=== PATIENT | female | born 1990 | race Two or more races ===

== ENCOUNTER 2017-02-24 17:28 | Emergency (ER) | payer MEDICAID ==
[~2017-02-24] VITALS: Ht 177.8 cm; Wt 102.0 kg
[2017-02-24 17:34] VITALS: BP 142/100
== END 2017-02-25 00:16 | disposition left against medical advice (07) ==
LOC: ER 17:28
DX: Z53.21 Procedure and treatment not carried out due to patient leaving prior to being seen by health care provider (principal)

== ENCOUNTER 2020-06-18 15:16 | Emergency (ER) | payer MEDICAID, OTHER ==
[~2020-06-18] VITALS: Ht 177.8 cm; Wt 104.0 kg
[2020-06-18] MEDS ORDERED: PIPERACILLIN/TAZ 3.375G PREMIX 50 ML IV ONE (16:30)
[2020-06-18] MEDS ORDERED: VANCOMYCIN 1 G PREMIX 200 ML IV ONE (16:30)
[2020-06-18] MEDS ORDERED: LIDOCAINE HCL/PF 1% 10 MG/ML 5ML VIAL IJ NR (17:30)
[2020-06-18 18:01] LABS: BASOPHILS % 0.9 % (0.0-2.0); EOSINOPHILS % 2.2 % (0.0-5.0); HEMATOCRIT. 37.2 % (36.0-48.0); HEMOGLOBIN. 12.4 g/dL (12.0-16.0); LYMPHOCYTES % 24.3 % (20.0-50.0); MEAN CORPUSCULAR HEMOGLOBIN 25.2 pg (28.0-32.0); MEAN CORPUSCULAR VOLUME 75.5 fL (81.0-99.0); MONOCYTES % 6.3 % (2.0-8.0); NEUTROPHILS % 66.3 % (40.0-76.0); PLATELET 400 x1000/uL (130-400); RED BLOOD CELL COUNT 4.92 mill/uL (4.2-5.4); RED CELL DISTRIBUTION WIDTH 13.7 % (11.6-14.6)
[2020-06-18 18:10] LABS: PROTHROMBIN TIME 10.3 sec (9.6-11.0)
[2020-06-18 18:13] LABS: CHLORIDE 101 mEq/L (98-107)
[2020-06-18] MEDS ORDERED: HYDROCODONE/ACETAMINOPHEN 5/325MG TABLET PO ONE (19:45)
[2020-06-18 20:07] VITALS: BP 153/100
== END 2020-06-18 20:18 | disposition short-term general hospital (02) ==
LOC: ER 15:16 → CANBEDREQ 20:42
DX: L97.518 Non-pressure chronic ulcer of other part of right foot with other specified severity (principal); E11.65 Type 2 diabetes mellitus with hyperglycemia
CPT/HCPCS: 36415; 73630; 80053; 81025; 85025; 85610; 87040; 87070; 87205; 93005; 96365; 96368; 99285; J2543; J3370; J3490

== ENCOUNTER 2021-07-19 12:05 | Emergency (ER) | payer OTHER ==
[~2021-07-19] VITALS: Ht 177.8 cm; Wt 87.0 kg
[2021-07-19] MEDS ORDERED: ONDANSETRON HCL 4MG/2ML INJ IV STA (12:31)
[2021-07-19] MEDS ORDERED: SODIUM CHLORIDE 0.9% 1,000 ML IV ONE (12:45)
[2021-07-19 13:22] LABS: BASOPHILS % 0.8 % (0.0-2.0); EOSINOPHILS % 0.3 % (0.0-5.0); HEMOGLOBIN. 13.7 g/dL (12.0-16.0); LYMPHOCYTES % 21.7 % (20.0-50.0); MEAN CORPUSCULAR HEMOGLOBIN 25.2 pg (28.0-32.0); MEAN CORPUSCULAR VOLUME 77.5 fL (81.0-99.0); MEAN PLATELET VOLUME 7.3 fl (7.4-10.4); MONOCYTES % 4.4 % (2.0-8.0); NEUTROPHILS % 72.8 % (40.0-76.0); PLATELET 459 x1000/uL (130-400); RED BLOOD CELL COUNT 5.42 mill/uL (4.2-5.4); RED CELL DISTRIBUTION WIDTH 13.7 % (11.6-14.6)
[2021-07-19 13:28] LABS: CHLORIDE 97 mEq/L (98-107)
[2021-07-19 13:33] LABS: HCG SCREEN NEGATIVE
[2021-07-19 13:54] LABS: CLARITY URINE CLEAR (CLEAR); COLOR URINE YELLOW (YELLOW); KETONES URINE NEGATIVE (NEGATIVE); LEUKOCYTE ESTERASE URINE NEGATIVE (NEGATIVE); NITRITE URINE NEGATIVE (NEGATIVE); OCCULT BLOOD URINE 1+ (NEGATIVE); PH URINE 7.5 (4.5-8.0); PROTEIN URINE 4+ (NEGATIVE); SPECIFIC GRAVITY URINE 1.016 (1.005-1.030); UROBILINOGEN URINE 0.2 E.U./dL (0.2-1.0)
[2021-07-19] MEDS ORDERED: MAGNESIUM/ALUMINUM HYDROXIDE/SIMETHICONE 30ML UDC PO NR (14:00)
[2021-07-19] MEDS ORDERED: VISCOUS LIDOCAINE 2% 15 ML UDC PO NR (14:00)
[2021-07-19] MEDS ORDERED: FAMOTIDINE 20MG/2ML VIAL IV ONE (14:00)
[2021-07-19] MEDS ORDERED: PROCHLORPERAZINE 10MG/2ML VIAL IM ONE (17:30)
[2021-07-19] MEDS ORDERED: MORPHINE SULFATE 4 MG/ML CPJ (NOT FOR IM USE) IV ONE (18:00)
[2021-07-19 18:15] VITALS: BP 126/85
== END 2021-07-19 21:31 | disposition left against medical advice (07) ==
LOC: ER 12:05
DX: R10.13 Epigastric pain (principal); N28.89 Other specified disorders of kidney and ureter; E11.9 Type 2 diabetes mellitus without complications; Z98.890 Other specified postprocedural states
CPT/HCPCS: 36415; 74176; 76705; 80053; 81003; 83690; 84703; 85025; 96361; 96372; 96374; 96375; 99285; J0780; J2270; J2405; J3490; J7030

== ENCOUNTER 2021-09-16 20:26 | Emergency (ER) | payer OTHER ==
[~2021-09-16] VITALS: Ht 172.7 cm; Wt 90.0 kg
[2021-09-16 20:28] VITALS: BP 141/106
[2021-09-16] MEDS ORDERED: METOCLOPRAMIDE HCL 10MG/2ML VIAL IV ONE (21:00)
[2021-09-16] MEDS ORDERED: SODIUM CHLORIDE 0.9% 1,000 ML IV ONE (21:00)
[2021-09-16 21:07] LABS: BASOPHILS % 0.6 % (0.0-2.0); EOSINOPHILS % 0.3 % (0.0-5.0); HEMATOCRIT. 38.6 % (36.0-48.0); HEMOGLOBIN. 12.6 g/dL (12.0-16.0); LYMPHOCYTES % 27.4 % (20.0-50.0); MEAN CORPUSCULAR HEMOGLOBIN 25.2 pg (28.0-32.0); MEAN CORPUSCULAR VOLUME 77.2 fL (81.0-99.0); MEAN PLATELET VOLUME 7.4 fl (7.4-10.4); MONOCYTES % 5.6 % (2.0-8.0); NEUTROPHILS % 66.1 % (40.0-76.0); PLATELET 425 x1000/uL (130-400); RED CELL DISTRIBUTION WIDTH 14.5 % (11.6-14.6)
[2021-09-16 21:13] LABS: CHLORIDE 102 mEq/L (98-107)
[2021-09-16 22:47] LABS: CLARITY URINE CLEAR (CLEAR); COLOR URINE YELLOW (YELLOW); KETONES URINE TRACE (NEGATIVE); LEUKOCYTE ESTERASE URINE NEGATIVE (NEGATIVE); NITRITE URINE NEGATIVE (NEGATIVE); OCCULT BLOOD URINE 1+ (NEGATIVE); PROTEIN URINE 4+ (NEGATIVE); UROBILINOGEN URINE 0.2 E.U./dL (0.2-1.0)
[2021-09-16] MEDS ORDERED: METO5TAB86 MT (23:04)
[2021-09-16] MEDS ORDERED: MAGNESIUM/ALUMINUM HYDROXIDE/SIMETHICONE 30ML UDC PO ONE (23:15)
== END 2021-09-16 23:49 | disposition home or self-care (01) ==
LOC: ER 20:26
DX: K29.70 Gastritis, unspecified, without bleeding (principal); R11.2 Nausea with vomiting, unspecified; E11.9 Type 2 diabetes mellitus without complications; Z98.890 Other specified postprocedural states
CPT/HCPCS: 36415; 80053; 81003; 82962; 83690; 85025; 93005; 96361; 96374; 99283; J2765; J7030

== ENCOUNTER 2021-11-28 09:38 | Emergency (ER) | payer MEDICAID, OTHER ==
[~2021-11-28] VITALS: Ht 167.6 cm; Wt 169.5 kg
[~2021-11-28 09:38] MED LIST: METO5TAB86 MT
[2021-11-28] MEDS ORDERED: glipizide (09:49)
[2021-11-28] MEDS ORDERED: METOCLOPRAMIDE HCL 10MG/2ML VIAL IV STA (10:46)
[2021-11-28 10:55] LABS: BASOPHILS % 0.6 % (0.0-2.0); EOSINOPHILS % 0.2 % (0.0-5.0); HEMATOCRIT. 41.7 % (36.0-48.0); HEMOGLOBIN. 13.9 g/dL (12.0-16.0); LYMPHOCYTES % 21.1 % (20.0-50.0); MEAN CORPUSCULAR HEMOGLOBIN 25.6 pg (28.0-32.0); MEAN CORPUSCULAR VOLUME 76.7 fL (81.0-99.0); MEAN PLATELET VOLUME 7.7 fl (7.4-10.4); MONOCYTES % 5.3 % (2.0-8.0); NEUTROPHILS % 72.8 % (40.0-76.0); PLATELET 314 x1000/uL (130-400); RED BLOOD CELL COUNT 5.44 mill/uL (4.2-5.4); RED CELL DISTRIBUTION WIDTH 13.2 % (11.6-14.6)
[2021-11-28] MEDS ORDERED: SODIUM CHLORIDE 0.9% 1,000 ML IV ONE (11:00)
[2021-11-28] MEDS ORDERED: MORPHINE SULFATE 4 MG/ML CPJ (NOT FOR IM USE) IV ONE (11:00)
[2021-11-28 11:01] LABS: CHLORIDE 99 mEq/L (98-107)
[2021-11-28 13:41] LABS: CLARITY URINE CLEAR (CLEAR); COLOR URINE YELLOW (YELLOW); KETONES URINE NEGATIVE (NEGATIVE); LEUKOCYTE ESTERASE URINE NEGATIVE (NEGATIVE); NITRITE URINE NEGATIVE (NEGATIVE); OCCULT BLOOD URINE 1+ (NEGATIVE); PH URINE 7.5 (4.5-8.0); PROTEIN URINE 4+ (NEGATIVE); SPECIFIC GRAVITY URINE 1.016 (1.005-1.030)
[2021-11-28] MEDS ORDERED: CEFTRIAXONE 1 G PREMIX 50 ML IV ONE (14:45)
[2021-11-28] MEDS ORDERED: METO-293 MT (15:28)
[2021-11-28] MEDS ORDERED: CEPH500C2 MT (15:37)
[2021-11-28 17:24] VITALS: BP 147/89
== END 2021-11-28 17:50 | disposition home or self-care (01) ==
LOC: ER 09:38
DX: R10.84 Generalized abdominal pain (principal); R11.10 Vomiting, unspecified; E11.9 Type 2 diabetes mellitus without complications; Z98.890 Other specified postprocedural states
CPT/HCPCS: 36415; 80053; 81003; 83690; 85025; 96361; 96365; 96366; 96375; 99285; J0696; J2270; J2765; J7030; Z7610

== ENCOUNTER 2021-12-15 21:14 | Emergency (ER) | payer MEDICAID ==
[~2021-12-15] VITALS: Ht 177.8 cm; Wt 91.0 kg
[~2021-12-15 21:14] MED LIST changes: +CEPH500C2 MT; +METO-293 MT; +glipizide
[2021-12-15] MEDS ORDERED: PANTOPRAZOLE SODIUM 40 MG/VIAL IV STA (21:59)
[2021-12-15] MEDS ORDERED: MORPHINE SULFATE 4 MG/ML CPJ (NOT FOR IM USE) IV STA (21:59)
[2021-12-15] MEDS ORDERED: METOCLOPRAMIDE HCL 10MG/2ML VIAL IV STA (21:59)
[2021-12-15] MEDS ORDERED: SODIUM CHLORIDE 0.9% 1,000 ML IV ONE (22:00)
[2021-12-15 22:47] LABS: BASOPHILS % 0.6 % (0.0-2.0); EOSINOPHILS % 0.1 % (0.0-5.0); HEMATOCRIT. 39.5 % (36.0-48.0); HEMOGLOBIN. 13.2 g/dL (12.0-16.0); LYMPHOCYTES % 17.2 % (20.0-50.0); MEAN CORPUSCULAR HEMOGLOBIN 25.8 pg (28.0-32.0); MEAN CORPUSCULAR VOLUME 77.4 fL (81.0-99.0); MEAN PLATELET VOLUME 8.1 fl (7.4-10.4); MONOCYTES % 3.8 % (2.0-8.0); NEUTROPHILS % 78.3 % (40.0-76.0); PLATELET 400 x1000/uL (130-400); RED CELL DISTRIBUTION WIDTH 13.3 % (11.6-14.6)
[2021-12-15 22:52] LABS: CHLORIDE 102 mEq/L (98-107)
[2021-12-15 22:56] LABS: ETHANOL BLOOD < 10 mg/dL
[2021-12-15 23:00] LABS: HCG SCREEN NEGATIVE
[2021-12-15 23:01] LABS: BETA HYDROXYBUTYRATE 0.6 mMol/L (0.0-0.3)
[2021-12-16] MEDS ORDERED: MORPHINE SULFATE 4 MG/ML CPJ (NOT FOR IM USE) IV ONE (01:30)
[2021-12-16 08:24] VITALS: BP 133/93
== END 2021-12-16 08:37 | disposition short-term general hospital (02) ==
LOC: ER 21:14 → CANBEDREQ 12-16 08:33 → ER 12-16 08:37
DX: R10.9 Unspecified abdominal pain (principal); E11.9 Type 2 diabetes mellitus without complications; Z20.822 Contact with and (suspected) exposure to COVID-19; Z98.890 Other specified postprocedural states
CPT/HCPCS: 36415; 74176; 80053; 80320; 82010; 83690; 84703; 85025; 87426; 93005; 96361; 96374; 96375; 96376; 99285; C9113; J2270; J2765; J7030; Z7610; G0480

== ENCOUNTER 2022-01-09 11:26 | Emergency (ER) | payer MEDICAID, OTHER ==
[~2022-01-09] VITALS: Ht 175.3 cm; Wt 90.0 kg
[2022-01-09 11:32] VITALS: BP 139/100
[2022-01-09] MEDS ORDERED: ONDANSETRON HCL 4MG/2ML INJ IV STA ×2 (12:35→17:09)
[2022-01-09] MEDS ORDERED: SODIUM CHLORIDE 0.9% 1,000 ML IV ONE (12:45)
[2022-01-09] MEDS ORDERED: ONDANSETRON HCL 4MG/2ML INJ ONE (13:45)
[2022-01-09 13:58] LABS: CHLORIDE 99 mEq/L (98-107)
[2022-01-09 14:06] LABS: BASOPHILS % 0.6 % (0.0-2.0); EOSINOPHILS % 0.4 % (0.0-5.0); HEMATOCRIT. 38.3 % (36.0-48.0); HEMOGLOBIN. 12.8 g/dL (12.0-16.0); LYMPHOCYTES % 29.8 % (20.0-50.0); MEAN CORPUSCULAR HEMOGLOBIN 25.9 pg (28.0-32.0); MEAN CORPUSCULAR VOLUME 77.7 fL (81.0-99.0); MEAN PLATELET VOLUME 7.4 fl (7.4-10.4); MONOCYTES % 6.3 % (2.0-8.0); NEUTROPHILS % 62.9 % (40.0-76.0); PLATELET 383 x1000/uL (130-400); RED BLOOD CELL COUNT 4.93 mill/uL (4.2-5.4); RED CELL DISTRIBUTION WIDTH 14.1 % (11.6-14.6)
[2022-01-09] MEDS ORDERED: KETOROLAC 15MG/ML VIAL IV ONE (14:15)
[2022-01-09 15:44] LABS: CLARITY URINE CLEAR (CLEAR); COLOR URINE YELLOW (YELLOW); KETONES URINE NEGATIVE (NEGATIVE); LEUKOCYTE ESTERASE URINE NEGATIVE (NEGATIVE); NITRITE URINE NEGATIVE (NEGATIVE); OCCULT BLOOD URINE NEGATIVE (NEGATIVE); PROTEIN URINE 4+ (NEGATIVE)
[2022-01-09] MEDS ORDERED: MORPHINE SULFATE 4 MG/ML CPJ (NOT FOR IM USE) IV STA (17:09)
[2022-01-09] MEDS ORDERED: IBUP-2029 MT (18:10)
== END 2022-01-09 18:38 | disposition home or self-care (01) ==
LOC: ER 11:26
DX: R10.32 Left lower quadrant pain (principal); N28.9 Disorder of kidney and ureter, unspecified; E11.9 Type 2 diabetes mellitus without complications; Z98.890 Other specified postprocedural states; Z79.899 Other long term (current) drug therapy
CPT/HCPCS: 36415; 74176; 80053; 81003; 81025; 83690; 85025; 96374; 96375; 96376; 99284; J1885; J2270; J2405; J7030

== ENCOUNTER 2022-02-22 09:21 | Emergency (ER) | payer MEDICAID, OTHER ==
[~2022-02-22] VITALS: Ht 175.3 cm; Wt 87.0 kg
[~2022-02-22 09:21] MED LIST changes: +IBUP-2029 MT
[2022-02-22] MEDS ORDERED: ONDANSETRON HCL 4MG/2ML INJ IV STA (10:42)
[2022-02-22] MEDS ORDERED: MORPHINE SULFATE 4 MG/ML CPJ (NOT FOR IM USE) IV STA (10:42)
[2022-02-22] MEDS ORDERED: MIDAZOLAM HCL 2 MG/2 ML VIAL IV ONE (10:45)
[2022-02-22] MEDS ORDERED: SODIUM CHLORIDE 0.9% 1,000 ML IV ONE (10:45)
[2022-02-22 11:03] LABS: BASOPHILS % 0.8 % (0.0-2.0); EOSINOPHILS % 0.5 % (0.0-5.0); HEMATOCRIT. 36.6 % (36.0-48.0); HEMOGLOBIN. 11.9 g/dL (12.0-16.0); LYMPHOCYTES % 28.3 % (20.0-50.0); MEAN CORPUSCULAR HEMOGLOBIN 25.6 pg (28.0-32.0); MEAN CORPUSCULAR VOLUME 78.6 fL (81.0-99.0); MEAN PLATELET VOLUME 8.1 fl (7.4-10.4); MONOCYTES % 4.3 % (2.0-8.0); NEUTROPHILS % 66.1 % (40.0-76.0); PLATELET 586 x1000/uL (130-400); RED BLOOD CELL COUNT 4.66 mill/uL (4.2-5.4); RED CELL DISTRIBUTION WIDTH 14.5 % (11.6-14.6)
[2022-02-22 11:08] LABS: CHLORIDE 99 mEq/L (98-107)
[2022-02-22 11:12] LABS: HCG SCREEN NEGATIVE
[2022-02-22 11:15] LABS: ETHANOL BLOOD < 10 mg/dL
[2022-02-22 11:37] LABS: CLARITY URINE CLEAR (CLEAR); COLOR URINE YELLOW (YELLOW); KETONES URINE NEGATIVE (NEGATIVE); LEUKOCYTE ESTERASE URINE TRACE (NEGATIVE); NITRITE URINE NEGATIVE (NEGATIVE); OCCULT BLOOD URINE TRACE (NEGATIVE); PROTEIN URINE 4+ (NEGATIVE); SPECIFIC GRAVITY URINE 1.016 (1.005-1.030); UROBILINOGEN URINE 0.2 E.U./dL (0.2-1.0)
[2022-02-22 12:23] LABS: *AMPHETAMINES SCREEN URINE NEGATIVE (NEGATIVE); *BARBITURATES SCREEN URINE NEGATIVE (NEGATIVE); *BENZODIAZEPINES SCREEN URINE NEGATIVE (NEGATIVE); *COCAINE SCREEN URINE NEGATIVE (NEGATIVE); CANNABINOID URINE SCREEN NEGATIVE (NEGATIVE); METHADONE URINE SCREEN NEGATIVE (NEGATIVE); OPIATES URINE SCREEN NEGATIVE (NEGATIVE); PHENCYCLIDINE URINE SCREEN NEGATIVE (NEGATIVE)
[2022-02-22] MEDS ORDERED: CEFTRIAXONE 1 G PREMIX 50 ML IV ONE (13:15)
[2022-02-22] MEDS ORDERED: SODIUM CHLORIDE 0.9% 1000ML BAG (SEPSIS BOLUS) IV ONE (13:15)
[2022-02-22] MEDS: CEFTRIAXONE 1 G PREMIX 50 ML IV NR ×3 (16:34→17:29)
[2022-02-22 22:00] VITALS: BP 118/77
== END 2022-02-22 23:05 | disposition short-term general hospital (02) ==
LOC: ER 09:21 → CANBEDREQ 19:51 → ER 23:05
DX: A41.9 Sepsis, unspecified organism (principal); R65.20 Severe sepsis without septic shock; N39.0 Urinary tract infection, site not specified; E11.9 Type 2 diabetes mellitus without complications; Z20.822 Contact with and (suspected) exposure to COVID-19; Z98.890 Other specified postprocedural states
CPT/HCPCS: 36415; 80053; 80305; 80320; 81003; 82962; 83605; 83690; 84703; 85025; 87040; 87086; 87426; 93005; 96361; 96374; 96375; 99285; J0696; J2250; J2270; J2405; J7030; G0480

== ENCOUNTER 2022-02-27 09:51 | Emergency (ER) | payer OTHER ==
[~2022-02-27] VITALS: Ht 170.2 cm; Wt 98.0 kg
[2022-02-27] MEDS ORDERED: CEFTRIAXONE 1 G PREMIX 50 ML IV ONE (10:30)
[2022-02-27] MEDS ORDERED: SODIUM CHLORIDE 0.9% 1000ML BAG (SEPSIS BOLUS) IV ONE (10:30)
[2022-02-27] MEDS ORDERED: FAMOTIDINE 20MG/2ML VIAL IV ONE (11:00)
[2022-02-27] MEDS ORDERED: FENTANYL CITRATE/PF 50MCG/ML 2ML VIAL IV ONE ×2 (11:00→14:30)
[2022-02-27 11:01] LABS: BASOPHILS % 0.6 % (0.0-2.0); EOSINOPHILS % 0.2 % (0.0-5.0); HEMATOCRIT. 38.2 % (36.0-48.0); HEMOGLOBIN. 12.4 g/dL (12.0-16.0); LYMPHOCYTES % 20.3 % (20.0-50.0); MEAN CORPUSCULAR HEMOGLOBIN 25.5 pg (28.0-32.0); MEAN CORPUSCULAR VOLUME 78.3 fL (81.0-99.0); MEAN PLATELET VOLUME 7.5 fl (7.4-10.4); NEUTROPHILS % 73.9 % (40.0-76.0); PLATELET 401 x1000/uL (130-400); RED BLOOD CELL COUNT 4.88 mill/uL (4.2-5.4); RED CELL DISTRIBUTION WIDTH 14.1 % (11.6-14.6)
[2022-02-27 11:11] LABS: CHLORIDE 105 mEq/L (98-107)
[2022-02-27 11:19] LABS: CLARITY URINE CLEAR (CLEAR); COLOR URINE YELLOW (YELLOW); KETONES URINE TRACE (NEGATIVE); LEUKOCYTE ESTERASE URINE NEGATIVE (NEGATIVE); NITRITE URINE NEGATIVE (NEGATIVE); OCCULT BLOOD URINE 1+ (NEGATIVE); PROTEIN URINE 4+ (NEGATIVE); SPECIFIC GRAVITY URINE 1.021 (1.005-1.030); UROBILINOGEN URINE 0.2 E.U./dL (0.2-1.0)
[2022-02-27 11:19] LABS: HCG SCREEN NEGATIVE
[2022-02-27] MEDS ORDERED: ONDANSETRON HCL 4MG/2ML INJ IV ONE (14:30)
[2022-02-27] MEDS ORDERED: IOHEXOL-350 100 ML BOTTLE ONE (16:48)
[2022-02-27] MEDS ORDERED: ACETAMINOPHEN 325MG TABLET PO ONE (17:45)
[2022-02-27 17:56] VITALS: BP 131/92
== END 2022-02-27 18:14 | disposition short-term general hospital (02) ==
LOC: ER 10:05 → CANBEDREQ 19:24
DX: R10.13 Epigastric pain (principal); N39.0 Urinary tract infection, site not specified; R65.10 Systemic inflammatory response syndrome (SIRS) of non-infectious origin without acute organ dysfunction; E11.65 Type 2 diabetes mellitus with hyperglycemia; K21.9 Gastro-esophageal reflux disease without esophagitis; Z98.890 Other specified postprocedural states; Z20.822 Contact with and (suspected) exposure to COVID-19
CPT/HCPCS: 36415; 70450; 70496; 70498; 80053; 81003; 81025; 82962; 83605; 83690; 84145; 84703; 85025; 87040; 87086; 87426; 93005; 96365; 96366; 96375; 96376; 99285; C9803; J0696; J2405; J3010; J7030; Q9967; J3490

== ENCOUNTER 2022-09-18 12:37 | Emergency (ER) | payer OTHER ==
[~2022-09-18] VITALS: Ht 175.3 cm; Wt 86.0 kg
[~2022-09-18 12:37] MED LIST changes: +BISA10SU62 RC; +LIP40 MT
[2022-09-18] MEDS ORDERED: ONDANSETRON HCL 4MG/2ML INJ IV STA (16:09)
[2022-09-18] MEDS ORDERED: MORPHINE SULFATE 4 MG/ML CPJ (NOT FOR IM USE) IV STA (16:09)
[2022-09-18] MEDS ORDERED: SODIUM CHLORIDE 0.9% 1,000 ML IV ONE (16:15)
[2022-09-18] MEDS ORDERED: PREDNISONE 20MG TABLET PO ONE (16:30)
[2022-09-18] MEDS ORDERED: ACYCLOVIR 400 MG TABLET PO ONE (16:45)
[2022-09-18 16:54] LABS: CLARITY URINE CLOUDY (CLEAR); COLOR URINE YELLOW (YELLOW); KETONES URINE NEGATIVE (NEGATIVE); LEUKOCYTE ESTERASE URINE 1+ (NEGATIVE); NITRITE URINE NEGATIVE (NEGATIVE); OCCULT BLOOD URINE 1+ (NEGATIVE); PROTEIN URINE 4+ (NEGATIVE); SPECIFIC GRAVITY URINE 1.012 (1.005-1.030); UROBILINOGEN URINE 0.2 E.U./dL (0.2-1.0)
[2022-09-18 17:08] LABS: BASOPHILS % 1.1 % (0.0-2.0); EOSINOPHILS % 0.5 % (0.0-5.0); HEMATOCRIT. 39.8 % (36.0-48.0); HEMOGLOBIN. 12.8 g/dL (12.0-16.0); LYMPHOCYTES % 24.8 % (20.0-50.0); MEAN CORPUSCULAR HEMOGLOBIN 25.6 pg (28.0-32.0); MEAN CORPUSCULAR VOLUME 79.7 fL (81.0-99.0); MEAN PLATELET VOLUME 7.8 fl (7.4-10.4); MONOCYTES % 5.3 % (2.0-8.0); NEUTROPHILS % 68.3 % (40.0-76.0); PLATELET 445 x1000/uL (130-400); RED BLOOD CELL COUNT 4.99 mill/uL (4.2-5.4); RED CELL DISTRIBUTION WIDTH 14.6 % (11.6-14.6)
[2022-09-18 17:14] LABS: CHLORIDE 105 mEq/L (98-107)
[2022-09-18 17:31] LABS: HCG SCREEN NEGATIVE
[2022-09-18] MEDS ORDERED: CEFTRIAXONE 1 G PREMIX 50 ML IV ONE (18:45)
[2022-09-18] MEDS ORDERED: POTASSIUM CHLORIDE 20MEQ TABLET SR PO ONE (18:45)
[2022-09-18] MEDS ORDERED: KETOROLAC 15MG/ML VIAL IV ONE (19:45)
[2022-09-18] MEDS ORDERED: P20 MT (19:47)
[2022-09-18] MEDS ORDERED: ACYC200C31 MT (19:47)
[2022-09-18] MEDS ORDERED: CEPH500C2 MT (19:47)
[2022-09-18] MEDS ORDERED: IBUP-2028 MT (19:48)
[2022-09-18 20:00] VITALS: BP 189/123
== END 2022-09-18 20:11 | disposition home or self-care (01) ==
LOC: ER 12:37
DX: R10.84 Generalized abdominal pain (principal); N39.0 Urinary tract infection, site not specified; G51.0 Bell's palsy; E11.9 Type 2 diabetes mellitus without complications; K21.9 Gastro-esophageal reflux disease without esophagitis; Z98.890 Other specified postprocedural states; Z79.899 Other long term (current) drug therapy
CPT/HCPCS: 36415; 71045; 74176; 80053; 81003; 81025; 82962; 83690; 84443; 84703; 85025; 86850; 86900; 86901; 87077; 87086; 87186; 93005; 96361; 96374; 96375; 99285; J0696; J1885; J2270; J2405; J7030; J7512

== ENCOUNTER 2022-09-21 06:50 | Emergency (ER) | payer MEDICAID, OTHER ==
[~2022-09-21] VITALS: Ht 175.3 cm; Wt 86.0 kg
[~2022-09-21 06:50] MED LIST changes: +ACYC200C31 MT; +IBUP-2028 MT; +P20 MT
[2022-09-21] MEDS ORDERED: MORPHINE SULFATE 4 MG/ML CPJ (NOT FOR IM USE) IV STA (07:21)
[2022-09-21] MEDS ORDERED: METOCLOPRAMIDE HCL 10MG/2ML VIAL IV STA (07:21)
[2022-09-21] MEDS ORDERED: FAMOTIDINE 20MG/2ML VIAL IV STA (07:21)
[2022-09-21] MEDS ORDERED: SODIUM CHLORIDE 0.9% 1,000 ML IV ONE (07:30)
[2022-09-21 08:15] LABS: BASOPHILS % 0.9 % (0.0-2.0); EOSINOPHILS % 0.5 % (0.0-5.0); HEMATOCRIT. 39.7 % (36.0-48.0); HEMOGLOBIN. 12.9 g/dL (12.0-16.0); LYMPHOCYTES % 24.9 % (20.0-50.0); MEAN CORPUSCULAR HEMOGLOBIN 26.2 pg (28.0-32.0); MEAN CORPUSCULAR VOLUME 80.3 fL (81.0-99.0); MEAN PLATELET VOLUME 7.6 fl (7.4-10.4); MONOCYTES % 7.7 % (2.0-8.0); PLATELET 381 x1000/uL (130-400); RED BLOOD CELL COUNT 4.94 mill/uL (4.2-5.4); RED CELL DISTRIBUTION WIDTH 14.9 % (11.6-14.6)
[2022-09-21 08:56] LABS: CHLORIDE 101 mEq/L (98-107)
[2022-09-21 09:03] LABS: HCG SCREEN NEGATIVE
[2022-09-21] MEDS ORDERED: DIPHENHYDRAMINE 50MG/ML VIAL IV ONE (09:15)
[2022-09-21 09:28] LABS: PROTHROMBIN TIME 10.3 sec (9.6-11.0)
[2022-09-21] MEDS ORDERED: MORPHINE SULFATE 4 MG/ML CPJ (NOT FOR IM USE) IV ONE (10:15)
[2022-09-21] MEDS ORDERED: IBUPROFEN 200MG TABLET PO ONE ×2 (15:00→18:15)
[2022-09-21 20:58] VITALS: BP 161/104
== END 2022-09-21 21:30 | disposition short-term general hospital (02) ==
LOC: ER 06:50 → CANBEDREQ 12:38 → ER 21:30
DX: K85.90 Acute pancreatitis without necrosis or infection, unspecified (principal); R10.9 Unspecified abdominal pain; E11.9 Type 2 diabetes mellitus without complications; K21.9 Gastro-esophageal reflux disease without esophagitis; G51.0 Bell's palsy; X58.XXXA Exposure to other specified factors, initial encounter; T78.40XA Allergy, unspecified, initial encounter; Z88.6 Allergy status to analgesic agent; Z88.5 Allergy status to narcotic agent; Z98.890 Other specified postprocedural states
CPT/HCPCS: 36415; 74176; 80053; 83690; 84703; 85025; 85610; 93005; 96361; 96374; 96375; 96376; 99285; J1200; J2270; J2765; J3490; J7030; Z7610

== ENCOUNTER 2022-09-28 12:41 | Inpatient (IN) | payer MEDICAID ==
[~2022-09-28] VITALS: Ht 175.3 cm; Wt 86.2 kg
[2022-09-28] MEDS ORDERED: MAGNESIUM/ALUMINUM HYDROXIDE/SIMETHICONE 30ML UDC PO ONE (13:30)
[2022-09-28] MEDS ORDERED: SODIUM CHLORIDE 0.9% 1,000 ML IV ONE (13:30)
[2022-09-28] MEDS ORDERED: DIPHENHYDRAMINE 50MG/ML VIAL IV ONE ×2 (13:30→18:45)
[2022-09-28] MEDS ORDERED: METOCLOPRAMIDE HCL 10MG/2ML VIAL IV ONE (13:30)
[2022-09-28 13:58] LABS: EOSINOPHILS % 1.6 % (0.0-5.0); HEMATOCRIT. 37.3 % (36.0-48.0); HEMOGLOBIN. 12.3 g/dL (12.0-16.0); LYMPHOCYTES % 27.4 % (20.0-50.0); MEAN CORPUSCULAR HEMOGLOBIN 26.4 pg (28.0-32.0); MEAN CORPUSCULAR VOLUME 80.1 fL (81.0-99.0); MEAN PLATELET VOLUME 8.2 fl (7.4-10.4); MONOCYTES % 4.1 % (2.0-8.0); NEUTROPHILS % 65.9 % (40.0-76.0); PLATELET 381 x1000/uL (130-400); RED BLOOD CELL COUNT 4.65 mill/uL (4.2-5.4); RED CELL DISTRIBUTION WIDTH 14.6 % (11.6-14.6)
[2022-09-28 13:59] LABS: CLARITY URINE CLEAR (CLEAR); COLOR URINE YELLOW (YELLOW); KETONES URINE 1+ (NEGATIVE); LEUKOCYTE ESTERASE URINE NEGATIVE (NEGATIVE); NITRITE URINE NEGATIVE (NEGATIVE); OCCULT BLOOD URINE 2+ (NEGATIVE); PH URINE 7.5 (4.5-8.0); PROTEIN URINE 4+ (NEGATIVE); SPECIFIC GRAVITY URINE 1.016 (1.005-1.030); UROBILINOGEN URINE 0.2 E.U./dL (0.2-1.0)
[2022-09-28 14:04] LABS: CHLORIDE 104 mEq/L (98-107)
[2022-09-28 14:13] LABS: ETHANOL BLOOD < 10 mg/dL
[2022-09-28 14:48] LABS: *AMPHETAMINES SCREEN URINE NEGATIVE (NEGATIVE); *BARBITURATES SCREEN URINE NEGATIVE (NEGATIVE); *BENZODIAZEPINES SCREEN URINE NEGATIVE (NEGATIVE); *COCAINE SCREEN URINE NEGATIVE (NEGATIVE); CANNABINOID URINE SCREEN NEGATIVE (NEGATIVE); METHADONE URINE SCREEN NEGATIVE (NEGATIVE); OPIATES URINE SCREEN NEGATIVE (NEGATIVE); PHENCYCLIDINE URINE SCREEN NEGATIVE (NEGATIVE)
[2022-09-28] MEDS ORDERED: MORPHINE SULFATE 4 MG/ML CPJ (NOT FOR IM USE) IV ONE (15:30)
[2022-09-28] MEDS ORDERED: KETOROLAC 30MG/ML VIAL IV ONE (18:45)
[2022-09-28] MEDS ORDERED: DEXAMETHASONE 10 MG/ML VIAL IV ONE (18:45)
[2022-09-28] MEDS ORDERED: MORPHINE SULFATE 2 MG/ML CPJ (NOT FOR IM USE) IV ONE (21:30)
[2022-09-28] MEDS ORDERED: DEXTROSE 50% WATER 50ML SYRINGE IV PRN (21:45)
[2022-09-28 22:00] VITALS: BP 167/111
[2022-09-28] MEDS ORDERED: DEXT 5%/0.45% NACL 500ML 500 ML IV ONE (22:30)
[2022-09-28] MEDS: MORPHINE SULFATE 2 MG/ML CPJ (NOT FOR IM USE) IV NR (23:18)
[2022-09-29] MEDS: MORPHINE SULFATE 2 MG/ML CPJ (NOT FOR IM USE) IV NR (00:33)
[2022-09-29] MEDS ORDERED: CLONIDINE 0.1MG TABLET PO PRN (01:00)
[2022-09-29] MEDS ORDERED: KCL 20MEQ/100ML PREMIX 100 ML IV NR (01:00)
[2022-09-29] MEDS ORDERED: NALOXONE HCL 0.4MG/ML VIAL IV PRN (03:45)
[2022-09-29] MEDS: MORPHINE SULFATE 2 MG/ML CPJ (NOT FOR IM USE) IV PRN ×4 (03:52→20:20)
[2022-09-29] MEDS ORDERED: DEXTROSE 50% WATER 50ML SYRINGE IV PRN (07:00)
[2022-09-29] MEDS: BLOOD SUGAR DIAGNOSTIC STRIP TEST SCH ×3 (07:20→20:21)
[2022-09-29] MEDS ORDERED: BLOOD SUGAR DIAGNOSTIC STRIP TEST SCH (07:20)
[2022-09-29] MEDS: INSULIN LISPRO 100 UNITS/ML SUBCUT SCH ×3 (07:22→21:18)
[2022-09-29 07:32] LABS: BASOPHILS % 0.2 % (0.0-2.0); HEMATOCRIT. 35.2 % (36.0-48.0); HEMOGLOBIN. 11.6 g/dL (12.0-16.0); LYMPHOCYTES % 11.3 % (20.0-50.0); MEAN CORPUSCULAR HEMOGLOBIN 26.3 pg (28.0-32.0); MEAN CORPUSCULAR VOLUME 79.9 fL (81.0-99.0); MEAN PLATELET VOLUME 7.7 fl (7.4-10.4); MONOCYTES % 0.9 % (2.0-8.0); NEUTROPHILS % 87.6 % (40.0-76.0); PLATELET 361 x1000/uL (130-400); RED CELL DISTRIBUTION WIDTH 14.3 % (11.6-14.6)
[2022-09-29 07:37] VITALS: BP 120/82
[2022-09-29] MEDS ORDERED: INSULIN LISPRO 100 UNITS/ML SUBCUT SCH (07:50)
[2022-09-29 08:33] LABS: CHLORIDE 101 mEq/L (98-107)
[2022-09-29] MEDS: PANTOPRAZOLE SODIUM 40 MG/VIAL IV SCH (09:47)
[2022-09-29 12:00] VITALS: BP 135/94
[2022-09-29] MEDS: METOCLOPRAMIDE HCL 10MG/2ML VIAL IV SCH (15:46)
[2022-09-29 16:00] VITALS: BP 137/89
[2022-09-29 20:00] VITALS: BP 137/97
[2022-09-29] MEDS ORDERED: CEFTRIAXONE 1 G PREMIX 50 ML IV SCH (22:00)
[2022-09-29] MEDS ORDERED: CEFTRIAXONE 1,000 MG in DEXTROSE 5% WATER 50 ML IV SCH (23:00)
[2022-09-30] VITALS: BP_SYST 105; BP_SYST 132; BP_DIAS 63; BP_DIAS 89
[2022-09-30] MEDS: METOCLOPRAMIDE HCL 10MG/2ML VIAL IV SCH ×4 (01:09→13:01)
[2022-09-30] MEDS: MORPHINE SULFATE 2 MG/ML CPJ (NOT FOR IM USE) IV PRN ×2 (01:13→06:30)
[2022-09-30] MEDS: DIPHENHYDRAMINE 50MG/ML VIAL IV PRN ×2 (02:54→09:06)
[2022-09-30 04:00] VITALS: BP 154/103
[2022-09-30] MEDS: BLOOD SUGAR DIAGNOSTIC STRIP TEST SCH ×2 (06:47→12:56)
[2022-09-30 07:24] LABS: BASOPHILS % 0.4 % (0.0-2.0); EOSINOPHILS % 0.6 % (0.0-5.0); HEMATOCRIT. 33.9 % (36.0-48.0); HEMOGLOBIN. 11.1 g/dL (12.0-16.0); LYMPHOCYTES % 21.9 % (20.0-50.0); MEAN CORPUSCULAR HEMOGLOBIN 25.8 pg (28.0-32.0); MEAN PLATELET VOLUME 7.6 fl (7.4-10.4); MONOCYTES % 4.6 % (2.0-8.0); NEUTROPHILS % 72.5 % (40.0-76.0); PLATELET 387 x1000/uL (130-400); RED BLOOD CELL COUNT 4.29 mill/uL (4.2-5.4); RED CELL DISTRIBUTION WIDTH 14.5 % (11.6-14.6)
[2022-09-30] MEDS: INSULIN LISPRO 100 UNITS/ML SUBCUT SCH ×2 (07:50→13:26)
[2022-09-30 08:00] VITALS: BP 143/97
[2022-09-30] MEDS: PANTOPRAZOLE SODIUM 40 MG/VIAL IV SCH (09:06)
[2022-09-30 12:00] VITALS: BP 111/65
[2022-09-30] MEDS ORDERED: POTASSIUM CHLORIDE 20MEQ TABLET SR PO NR (12:30)
[2022-09-30 13:45] VITALS: BP 111/65
== END 2022-09-30 14:30 | disposition home or self-care (01) | DRG 48 ==
LOC: ER 12:41 → 6EST 18:39 → EDBEDREQTM 18:43 → EDBEDREQ 18:43 → ER 20:13
PROVIDERS: ADMIT Internal Medicine; ATTEND Internal Medicine
DX: E11.43 Type 2 diabetes mellitus with diabetic autonomic (poly)neuropathy (principal); E11.65 Type 2 diabetes mellitus with hyperglycemia; K31.84 Gastroparesis; K21.9 Gastro-esophageal reflux disease without esophagitis; Z79.899 Other long term (current) drug therapy; Z88.6 Allergy status to analgesic agent; Z88.5 Allergy status to narcotic agent; Z88.8 Allergy status to other drugs, medicaments and biological substances; Z98.891 History of uterine scar from previous surgery; Z83.3 Family history of diabetes mellitus; Z82.49 Family history of ischemic heart disease and other diseases of the circulatory system; E87.6 Hypokalemia
CPT/HCPCS: 36415; 76705; 80048; 80053; 80305; 80320; 81003; 82962; 83036; 85025; 93005; 99285; C9113; J0696; J1100; J1200; J1815; J1885; J2270; J2765; J3480; J7030; J7060; G0480

== ENCOUNTER 2022-10-09 13:05 | Emergency (ER) | payer MEDICAID ==
[~2022-10-09] VITALS: Ht 337.8 cm; Wt 100.0 kg
[2022-10-09] MEDS ORDERED: ONDANSETRON HCL 4MG/2ML INJ IV STA (17:11)
[2022-10-09] MEDS ORDERED: SODIUM CHLORIDE 0.9% 1,000 ML IV ONE (17:15)
[2022-10-09] MEDS ORDERED: KETOROLAC 15MG/ML VIAL IV ONE (17:15)
[2022-10-09 17:42] LABS: BASOPHILS % 0.7 % (0.0-2.0); EOSINOPHILS % 1.6 % (0.0-5.0); HEMATOCRIT. 33.2 % (36.0-48.0); HEMOGLOBIN. 10.8 g/dL (12.0-16.0); LYMPHOCYTES % 15.1 % (20.0-50.0); MEAN CORPUSCULAR HEMOGLOBIN 26.1 pg (28.0-32.0); MEAN CORPUSCULAR VOLUME 79.8 fL (81.0-99.0); MEAN PLATELET VOLUME 7.1 fl (7.4-10.4); MONOCYTES % 5.3 % (2.0-8.0); NEUTROPHILS % 77.3 % (40.0-76.0); PLATELET 391 x1000/uL (130-400); RED BLOOD CELL COUNT 4.16 mill/uL (4.2-5.4); RED CELL DISTRIBUTION WIDTH 14.5 % (11.6-14.6)
[2022-10-09 18:02] LABS: CHLORIDE 108 mEq/L (98-107)
[2022-10-09 18:30] LABS: HCG SCREEN NEGATIVE
[2022-10-09] MEDS ORDERED: KETOROLAC 15MG/ML VIAL IV NR (22:45)
[2022-10-09] MEDS ORDERED: ONDANSETRON HCL 4MG/2ML INJ IV NR (22:45)
[2022-10-10 01:41] LABS: CLARITY URINE CLOUDY (CLEAR); COLOR URINE YELLOW (YELLOW); KETONES URINE 1+ (NEGATIVE); LEUKOCYTE ESTERASE URINE 1+ (NEGATIVE); NITRITE URINE NEGATIVE (NEGATIVE); OCCULT BLOOD URINE 1+ (NEGATIVE); PH URINE 7.5 (4.5-8.0); PROTEIN URINE 4+ (NEGATIVE); SPECIFIC GRAVITY URINE 1.017 (1.005-1.030); UROBILINOGEN URINE 0.2 E.U./dL (0.2-1.0)
[2022-10-10] MEDS ORDERED: VISCOUS LIDOCAINE 2% 15 ML UDC PO STA (05:21)
[2022-10-10] MEDS ORDERED: MAGNESIUM/ALUMINUM HYDROXIDE/SIMETHICONE 30ML UDC PO STA (05:21)
[2022-10-10] MEDS ORDERED: DICYCLOMINE 10 MG/5 ML ORAL SYR PO STA (05:21)
[2022-10-10] MEDS ORDERED: METO-293 MT (05:25)
[2022-10-10] MEDS ORDERED: METOCLOPRAMIDE HCL 10MG/2ML VIAL IV ONE (05:30)
[2022-10-10 06:00] VITALS: BP 137/102
== END 2022-10-10 06:46 | disposition home or self-care (01) ==
LOC: ER 13:05
DX: E11.43 Type 2 diabetes mellitus with diabetic autonomic (poly)neuropathy (principal); K31.84 Gastroparesis; K21.9 Gastro-esophageal reflux disease without esophagitis; Z98.890 Other specified postprocedural states; Z88.6 Allergy status to analgesic agent; Z88.1 Allergy status to other antibiotic agents
CPT/HCPCS: 36415; 80053; 81003; 81025; 83690; 84703; 85025; 96361; 96374; 96375; 99284; J1885; J2405; J2765; J7030; Z7610

== ENCOUNTER 2023-06-18 13:41 | Emergency (ER) | payer MEDICAID, OTHER ==
[~2023-06-18] VITALS: Ht 175.3 cm; Wt 87.0 kg
[2023-06-18 13:50] VITALS: O2SAT 99
[2023-06-18] MEDS ORDERED: ONDANSETRON 4MG/5ML UDC PO ONE (15:00)
[2023-06-18] MEDS ORDERED: METOCLOPRAMIDE 10MG/10 ML UDC PO ONE (16:15)
[2023-06-18] MEDS ORDERED: METO-293 MT (17:56)
[2023-06-18] MEDS ORDERED: METOCLOPRAMIDE 10MG/10 ML UDC PO NR (18:30)
[2023-06-18 18:55] VITALS: BP 134/104; PULSE 93; RESP 18; TEMP 98
[2023-06-18] MEDS ORDERED: ONDANSETRON 4MG/5ML UDC PO NR (19:00)
== END 2023-06-18 18:57 | disposition home or self-care (01) ==
LOC: ER 13:52
DX: R11.2 Nausea with vomiting, unspecified (principal); E11.9 Type 2 diabetes mellitus without complications; K21.9 Gastro-esophageal reflux disease without esophagitis; I10 Essential (primary) hypertension; Z79.899 Other long term (current) drug therapy
CPT/HCPCS: 81025; 99283; J8597; Z7610

== ENCOUNTER 2023-07-05 23:08 | Inpatient (IN) | payer MEDICAID ==
[~2023-07-05] VITALS: Ht 172.7 cm; Wt 118.4 kg
[2023-07-05] MEDS ORDERED: HEPARIN 5000 UNITS/ML VIAL IV ONE (23:30)
[2023-07-05] MEDS ORDERED: ASPIRIN 325MG EC TABLET PO ONE (23:30)
[2023-07-05] MEDS ORDERED: SUCCINYLCHOLINE CHLORIDE 200MG/10ML IV ONE (23:45)
[2023-07-05] MEDS ORDERED: ALBUTEROL (0.5%) 2.5MG/0.5ML NEB HHN ONE (23:45)
[2023-07-05] MEDS ORDERED: PROPOFOL 10MG/ML 100ML 100 ML IV ONE (23:45)
[2023-07-05] MEDS ORDERED: ETOMIDATE 2MG/ML 10ML VIAL IV ONE (23:45)
[2023-07-05] MEDS ORDERED: MORPHINE SULFATE 4 MG/ML CPJ (NOT FOR IM USE) IV ONE (23:45)
[2023-07-05] MEDS ORDERED: LEVOFLOXACIN 750MG PREMIX 150 ML IV ONE (23:45)
[2023-07-05] MEDS ORDERED: ONDANSETRON HCL 4MG/2ML INJ IV ONE (23:45)
[2023-07-06] VITALS (74 sets, daily range): BP systolic 84–125; BP diastolic 63–98; PULSE 71–110; RESP 12–26; TEMP 97.4–97.7
[2023-07-06] MEDS ORDERED: IODIXANOL 320MG/ML 100 ML BOTTLE IV ONE
[2023-07-06] MEDS ORDERED: HEPARIN 1000 UNITS/ML 10ML ONE
[2023-07-06] MEDS ORDERED: VERAPAMIL HCL 2.5 MG/1 ML 2ML VIAL IV ONE
[2023-07-06] MEDS ORDERED: FENTANYL CITRATE/PF 50MCG/ML 2ML VIAL ONE
[2023-07-06] MEDS ORDERED: LIDOCAINE HCL 1% 20ML VIAL (Pyxis) INJ ONE (00:01)
[2023-07-06 00:04] LABS: BASOPHILS % 0.7 % (0.0-2.0); EOSINOPHILS % 1.2 % (0.0-5.0); HEMATOCRIT. 27.1 % (36.0-48.0); HEMOGLOBIN. 8.4 g/dL (12.0-16.0); LYMPHOCYTES % 25.5 % (20.0-50.0); MEAN CORPUSCULAR HEMOGLOBIN 26.3 pg (28.0-32.0); MEAN CORPUSCULAR HGB CONC 30.9 g/dL (31.0-37.0); MEAN CORPUSCULAR VOLUME 85.1 fL (81.0-99.0); MEAN PLATELET VOLUME 7.7 fl (7.4-10.4); MONOCYTES % 4.9 % (2.0-8.0); NEUTROPHILS % 67.7 % (40.0-76.0); PLATELET 380 x1000/uL (130-400); RED BLOOD CELL COUNT 3.18 mill/uL (4.2-5.4); RED CELL DISTRIBUTION WIDTH 15.2 % (11.6-14.6); WHITE BLOOD COUNT 10.7 x1000/uL (4.5-11.0)
[2023-07-06 00:11] LABS: PARTIAL THROMBOPLASTIN TIME 31.3 sec (23.4-31.0); PROTHROMBIN TIME 10.3 sec (9.6-11.0)
[2023-07-06] MEDS ORDERED: VANCOMYCIN 1G PREMIX 200 ML IV NR (00:15)
[2023-07-06] MEDS ORDERED: SODIUM CHLORIDE 0.9% 1,000 ML IV NR (00:15)
[2023-07-06 00:24] LABS: ALANINE AMINOTRANSFERASE 13 IU/L (10-49); ALBUMIN 2.3 g/dL (3.2-4.8); ASPARTATE AMINOTRANSFERASE 26 IU/L (<34); BILIRUBIN TOTAL 0.2 mg/dL (0.1-1.0); CALCIUM 7.9 mg/dL (8.7-10.4); CARBON DIOXIDE 15 mEq/L (21-32); CHLORIDE 115 mEq/L (98-107); CREATININE 3.6 mg/dL (0.6-1.0); GLUCOSE 138 mg/dL (70-105); POTASSIUM 5.5 mEq/L (3.5-5.1); PROTEIN TOTAL 4.2 g/dL (6.0-8.3); SODIUM 139 mEq/L (136-145); UREA NITROGEN BLOOD 52 mg/dL (9-23)
[2023-07-06] MEDS ORDERED: MIDAZOLAM HCL 2 MG/2 ML VIAL ONE (00:26)
[2023-07-06 00:44] LABS: CLARITY URINE CLOUDY (CLEAR); COLOR URINE YELLOW (YELLOW); GLUCOSE URINE 1+ (NEGATIVE); KETONES URINE NEGATIVE (NEGATIVE); LEUKOCYTE ESTERASE URINE NEGATIVE (NEGATIVE); NITRITE URINE NEGATIVE (NEGATIVE); OCCULT BLOOD URINE 1+ (NEGATIVE); PH URINE 6.5 (4.5-8.0); PROTEIN URINE 4+ (NEGATIVE); SPECIFIC GRAVITY URINE 1.018 (1.005-1.030); UROBILINOGEN URINE 0.2 E.U./dL (0.2-1.0)
[2023-07-06 00:48] LABS: BACTERIA URINE NONE SEEN; SQUAMOUS EPITHELIAL CELL URINE 1+ /lpf (RARE/1+); YEAST URINE NONE SEEN
[2023-07-06 00:51] LABS: ETHANOL BLOOD < 10 mg/dL (<10); HCG SCREEN NEGATIVE; TROPONIN I HIGH SENSITIVITY 16377 ng/L (3.0-34)
[2023-07-06] MEDS ORDERED: CLOPIDOGREL 75MG TABLET ONE (00:57)
[2023-07-06] MEDS ORDERED: ASPIRIN 325MG TABLET ONE (01:04)
[2023-07-06 01:15] LABS: *AMPHETAMINES SCREEN URINE NEGATIVE (NEGATIVE); *BARBITURATES SCREEN URINE NEGATIVE (NEGATIVE); *BENZODIAZEPINES SCREEN URINE NEGATIVE (NEGATIVE); *COCAINE SCREEN URINE NEGATIVE (NEGATIVE); CANNABINOID URINE SCREEN NEGATIVE (NEGATIVE); ECSTASY MDMA SCREEN URINE NEGATIVE (NEGATIVE); METHADONE URINE SCREEN Neg (NEGATIVE); OPIATES URINE SCREEN NEGATIVE (NEGATIVE); PHENCYCLIDINE URINE SCREEN NEGATIVE (NEGATIVE)
[2023-07-06] MEDS ORDERED: SODIUM CHLORIDE 0.45% 250 ML IV SCH (01:15)
[2023-07-06] MEDS ORDERED: ACETAMINOPHEN 325MG TABLET PO PRN ×2 (01:15→10:00)
[2023-07-06] MEDS ORDERED: ATROPINE SULFATE 1MG/10ML SYR IV PRN (01:15)
[2023-07-06] MEDS ORDERED: SODIUM CHLORIDE 0.45% 1000ML IV SCH (01:30)
[2023-07-06] MEDS ORDERED: FUROSEMIDE 40MG/4ML VIAL IVP NR (01:30)
[2023-07-06 01:56] LABS: BG BASE EXCESS -11.8 mmol/L (-2.0-2.0); BG CARBOXYHEMOGLOBIN 0.3 % (0.5-1.5); BG DEOXYHEMOGLOBIN 1.9 % (0.0-5.0); BG FRACTION INSPIRED OXYGEN 100; BG HCO3 ACT 14.3 mmol/L (22.0-26.0); BG METHEMOGLOBIN 0.3 % (0.0-1.5); BG OXYGEN SATURATION 98.1 % (92.0-98.5); BG OXYHEMOGLOBIN 97.5 % (94.0-97.0); BG PCO2 32.7 mmHg (35.0-45.0); BG PH 7.258 (7.350-7.450); BG PO2 261.5 mmHg (75.0-100.0); BG SAMPLE SITE RIGHT RADIAL; BG TOTAL HEMOGLOBIN 7.7 g/dL (12.0-18.0); BG TOTAL RESPIRATORY RATE 22 b/min; BG VENT MODE VENT - AC
[2023-07-06] MEDS: PROPOFOL 10MG/ML 100ML 100 ML IV PRN ×5 (02:00→21:32)
[2023-07-06 05:52] LABS: BASOPHILS % 0.3 % (0.0-2.0); EOSINOPHILS % 0.3 % (0.0-5.0); HEMATOCRIT. 24.4 % (36.0-48.0); HEMOGLOBIN. 7.5 g/dL (12.0-16.0); LYMPHOCYTES % 19.5 % (20.0-50.0); MEAN CORPUSCULAR HEMOGLOBIN 26.8 pg (28.0-32.0); MEAN CORPUSCULAR HGB CONC 30.9 g/dL (31.0-37.0); MEAN CORPUSCULAR VOLUME 86.7 fL (81.0-99.0); MEAN PLATELET VOLUME 7.6 fl (7.4-10.4); MONOCYTES % 5.9 % (2.0-8.0); PLATELET 343 x1000/uL (130-400); RED BLOOD CELL COUNT 2.82 mill/uL (4.2-5.4); RED CELL DISTRIBUTION WIDTH 15.8 % (11.6-14.6); WHITE BLOOD COUNT 9.3 x1000/uL (4.5-11.0)
[2023-07-06 06:12] LABS: CALCIUM 7.7 mg/dL (8.7-10.4); CREATININE 3.6 mg/dL (0.6-1.0)
[2023-07-06] MEDS ORDERED: ASPIRIN 325MG TABLET PO SCH (09:00)
[2023-07-06] MEDS ORDERED: SODIUM BICARBONATE 8.4% 1 MEQ/ML 50ML SYR IV NR (09:24)
[2023-07-06] MEDS ORDERED: INSULIN REGULAR (HUMULIN R) 300UNITS/3ML VIAL IV NR (09:24)
[2023-07-06] MEDS: CLOPIDOGREL 75MG TABLET PO SCH (09:27)
[2023-07-06] MEDS ORDERED: CALCIUM CHLORIDE 1,000 MG in DEXT 5% WATER 90 ML IV ONE (09:30)
[2023-07-06] MEDS ORDERED: SODIUM POLYSTYRENE SULFONATE 15 G/60 ML BOT PO NR ×2 (09:30→18:15)
[2023-07-06] MEDS: DEXTROSE 50% WATER 50ML SYRINGE IV NR ×2 (09:54→10:53)
[2023-07-06] MEDS: ASPIRIN 81MG TABLET PO SCH (09:54)
[2023-07-06] MEDS: SODIUM BICARBONATE 100 MEQ in DEXTROSE 5% WATER 1,000 ML IV SCH ×3 (09:55→11:00)
[2023-07-06] MEDS ORDERED: ONDANSETRON HCL 4MG/2ML INJ IV PRN (10:00)
[2023-07-06] MEDS ORDERED: PANTOPRAZOLE SODIUM 40 MG/VIAL IV NR (10:00)
[2023-07-06] MEDS ORDERED: DEXTROSE 50% WATER 50ML SYRINGE IV PRN (11:00)
[2023-07-06] MEDS ORDERED: CALCIUM CHLORIDE 1000 MG in DEXTROSE 5% WATER 100 ML IV NR (11:00)
[2023-07-06] MEDS: INSULIN LISPRO 100 UNITS/ML SUBCUT SCH ×2 (11:35→17:44)
[2023-07-06] MEDS: BLOOD SUGAR DIAGNOSTIC STRIP TEST SCH ×2 (11:35→17:44)
[2023-07-06 12:55] LABS: CREATINE KINASE 496 IU/L (34-145); POTASSIUM 5.4 mEq/L (3.5-5.1)
[2023-07-06 13:50] LABS: BG CARBOXYHEMOGLOBIN 0.2 % (0.5-1.5); BG DEOXYHEMOGLOBIN 1.8 % (0.0-5.0); BG FRACTION INSPIRED OXYGEN 60; BG HCO3 ACT 14.1 mmol/L (22.0-26.0); BG METHEMOGLOBIN 0.3 % (0.0-1.5); BG OXYGEN SATURATION 98.2 % (92.0-98.5); BG OXYHEMOGLOBIN 97.7 % (94.0-97.0); BG PCO2 28.9 mmHg (35.0-45.0); BG PH 7.305 (7.350-7.450); BG PO2 256.6 mmHg (75.0-100.0); BG SAMPLE SITE RIGHT RADIAL; BG TOTAL HEMOGLOBIN 9.8 g/dL (12.0-18.0); BG VENT MODE VENT - AC
[2023-07-06 15:00] LABS: ALANINE AMINOTRANSFERASE 14 IU/L (10-49); ALBUMIN 2.3 g/dL (3.2-4.8); ASPARTATE AMINOTRANSFERASE 49 IU/L (<34); BILIRUBIN TOTAL 0.2 mg/dL (0.1-1.0); PROTEIN TOTAL 4.2 g/dL (6.0-8.3)
[2023-07-06 15:25] LABS: BILIRUBIN DIRECT < 0.1 mg/dL (<=3.0)
[2023-07-06] MEDS ORDERED: MAGNESIUM 2 G PREMIX 50 ML IV NR (18:15)
[2023-07-07] VITALS (39 sets, daily range): BP systolic 86–126; BP diastolic 61–88; PULSE 67–99; RESP 13–22; TEMP 98.3
[2023-07-07] MEDS: SODIUM BICARBONATE 100 MEQ in DEXTROSE 5% WATER 1,000 ML IV SCH ×2 (02:35→18:17)
[2023-07-07] MEDS: PROPOFOL 10MG/ML 100ML 100 ML IV PRN ×2 (05:29→12:14)
[2023-07-07] MEDS: INSULIN LISPRO 100 UNITS/ML SUBCUT SCH ×4 (06:00→18:00)
[2023-07-07 06:22] LABS: BASOPHILS % 0.9 % (0.0-2.0); EOSINOPHILS % 2.4 % (0.0-5.0); HEMOGLOBIN. 8.7 g/dL (12.0-16.0); LYMPHOCYTES % 23.3 % (20.0-50.0); MEAN CORPUSCULAR HEMOGLOBIN 26.5 pg (28.0-32.0); MEAN CORPUSCULAR HGB CONC 31.1 g/dL (31.0-37.0); MEAN CORPUSCULAR VOLUME 85.2 fL (81.0-99.0); MEAN PLATELET VOLUME 7.8 fl (7.4-10.4); MONOCYTES % 8.9 % (2.0-8.0); NEUTROPHILS % 64.5 % (40.0-76.0); PLATELET 295 x1000/uL (130-400); RED BLOOD CELL COUNT 3.28 mill/uL (4.2-5.4); RED CELL DISTRIBUTION WIDTH 16.1 % (11.6-14.6); WHITE BLOOD COUNT 6.7 x1000/uL (4.5-11.0)
[2023-07-07] MEDS: BLOOD SUGAR DIAGNOSTIC STRIP TEST SCH ×4 (06:37→18:17)
[2023-07-07 06:48] LABS: CARBON DIOXIDE 17 mEq/L (21-32); CHLORIDE 113 mEq/L (98-107); CREATININE 3.5 mg/dL (0.6-1.0); GLUCOSE 83 mg/dL (70-105); POTASSIUM 5.1 mEq/L (3.5-5.1); SODIUM 140 mEq/L (136-145); TRIGLYCERIDE 126 mg/dL (0-150); UREA NITROGEN BLOOD 47 mg/dL (9-23)
[2023-07-07 08:35] LABS: BG BASE EXCESS -8.8 mmol/L (-2.0-2.0); BG CARBOXYHEMOGLOBIN 0.3 % (0.5-1.5); BG DEOXYHEMOGLOBIN 2.6 % (0.0-5.0); BG FRACTION INSPIRED OXYGEN 40; BG METHEMOGLOBIN 0.3 % (0.0-1.5); BG OXYGEN SATURATION 97.4 % (92.0-98.5); BG OXYHEMOGLOBIN 96.8 % (94.0-97.0); BG PCO2 30.2 mmHg (35.0-45.0); BG PH 7.343 (7.350-7.450); BG PO2 127.4 mmHg (75.0-100.0); BG SAMPLE SITE RIGHT RADIAL; BG TOTAL HEMOGLOBIN 7.5 g/dL (12.0-18.0); BG VENT MODE VENT - AC
[2023-07-07] MEDS ORDERED: SODIUM POLYSTYRENE SULFONATE 15 G/60 ML BOT PO NR (09:15)
[2023-07-07] MEDS: ASPIRIN 81MG TABLET PO SCH (09:23)
[2023-07-07] MEDS: CLOPIDOGREL 75MG TABLET PO SCH (09:23)
[2023-07-07 13:46] LABS: BG BASE EXCESS -9.7 mmol/L (-2.0-2.0); BG CARBOXYHEMOGLOBIN 0.3 % (0.5-1.5); BG DEOXYHEMOGLOBIN 2.5 % (0.0-5.0); BG FRACTION INSPIRED OXYGEN 40; BG METHEMOGLOBIN 0.2 % (0.0-1.5); BG OXYGEN SATURATION 97.5 % (92.0-98.5); BG PCO2 28.6 mmHg (35.0-45.0); BG PH 7.338 (7.350-7.450); BG PO2 124.2 mmHg (75.0-100.0); BG SAMPLE SITE LEFT RADIAL; BG TOTAL HEMOGLOBIN 8.4 g/dL (12.0-18.0); BG VENT MODE VENT - CPAP
[2023-07-07] MEDS ORDERED: SODIUM BICARBONATE 8.4% 1 MEQ/ML 50ML SYR IV NR (14:30)
[2023-07-07 15:37] LABS: BG BASE EXCESS -8.7 mmol/L (-2.0-2.0); BG CARBOXYHEMOGLOBIN 0.2 % (0.5-1.5); BG DEOXYHEMOGLOBIN 3.8 % (0.0-5.0); BG FRACTION INSPIRED OXYGEN 35; BG METHEMOGLOBIN 0.3 % (0.0-1.5); BG OXYGEN SATURATION 96.2 % (92.0-98.5); BG OXYHEMOGLOBIN 95.7 % (94.0-97.0); BG PCO2 30.1 mmHg (35.0-45.0); BG PH 7.344 (7.350-7.450); BG PO2 92.8 mmHg (75.0-100.0); BG SAMPLE SITE LEFT RADIAL; BG TOTAL HEMOGLOBIN 8.5 g/dL (12.0-18.0); BG VENT MODE COOL AEROSOL
[2023-07-07] MEDS: ALPRAZOLAM 0.25 MG TABLET PO PRN (21:45)
[2023-07-08] VITALS (45 sets, daily range): BP systolic 90–144; BP diastolic 72–103; PULSE 87–101; RESP 0–29; TEMP 98.1–98.6
[2023-07-08 04:02] LABS: CREATININE URINE RANDOM 57.6 mg/dL
[2023-07-08] MEDS: GUAIFENESIN 600MG ER TABLET PO PRN (05:42)
[2023-07-08] MEDS: INSULIN LISPRO 100 UNITS/ML SUBCUT SCH ×4 (06:00→17:42)
[2023-07-08] MEDS: BLOOD SUGAR DIAGNOSTIC STRIP TEST SCH ×4 (06:00→17:42)
[2023-07-08 07:53] LABS: CALCIUM 7.7 mg/dL (8.7-10.4); CARBON DIOXIDE 20 mEq/L (21-32); CHLORIDE 111 mEq/L (98-107); CREATININE 3.2 mg/dL (0.6-1.0); GLUCOSE 85 mg/dL (70-105); PHOSPHORUS 6.7 mg/dL (2.5-4.9); POTASSIUM 3.9 mEq/L (3.5-5.1); SODIUM 141 mEq/L (136-145); UREA NITROGEN BLOOD 41 mg/dL (9-23)
[2023-07-08 08:13] LABS: BASOPHILS % 0.8 % (0.0-2.0); EOSINOPHILS % 3.1 % (0.0-5.0); HEMATOCRIT. 23.3 % (36.0-48.0); HEMOGLOBIN. 7.4 g/dL (12.0-16.0); MEAN CORPUSCULAR HEMOGLOBIN 26.3 pg (28.0-32.0); MEAN CORPUSCULAR VOLUME 82.2 fL (81.0-99.0); MONOCYTES % 9.1 % (2.0-8.0); PLATELET 348 x1000/uL (130-400); RED BLOOD CELL COUNT 2.83 mill/uL (4.2-5.4); RED CELL DISTRIBUTION WIDTH 15.4 % (11.6-14.6); WHITE BLOOD COUNT 7.2 x1000/uL (4.5-11.0)
[2023-07-08] MEDS: CITRIC ACID/SODIUM CITRATE SOLN 15ML UDC PO SCH ×3 (08:41→17:42)
[2023-07-08] MEDS: ASPIRIN 81MG TABLET PO SCH (08:42)
[2023-07-08] MEDS: CLOPIDOGREL 75MG TABLET PO SCH (08:42)
[2023-07-08] MEDS: ALPRAZOLAM 0.25 MG TABLET PO PRN ×2 (08:43→17:03)
[2023-07-08 09:06] LABS: COMPLEMENT C3 117 mg/dL (82-167); COMPLEMENT C4 35 mg/dL (12-38)
[2023-07-08 13:11] LABS: ANTI-NUCLEAR ANTIBODIES DIRECT Negative (Negative)
[2023-07-08] MEDS: CALCIUM ACETATE 667MG CAPSULE PO SCH ×2 (13:36→17:42)
[2023-07-08] MEDS: CARVEDILOL 3.125 MG TABLET PO SCH (22:01)
[2023-07-09] VITALS (48 sets, daily range): BP systolic 105–140; BP diastolic 74–106; PULSE 84–100; RESP 0–27; TEMP 98–98.7
[2023-07-09] MEDS: GUAIFENESIN 600MG ER TABLET PO PRN (02:33)
[2023-07-09 03:08] LABS: CREATININE URINE (RAW) 62.4 mg/dl
[2023-07-09] MEDS: BLOOD SUGAR DIAGNOSTIC STRIP TEST SCH ×4 (06:00→18:57)
[2023-07-09] MEDS: INSULIN LISPRO 100 UNITS/ML SUBCUT SCH ×4 (06:00→18:00)
[2023-07-09 06:23] LABS: BASOPHILS % 0.7 % (0.0-2.0); DIFFERENTIAL COMMENT 0; HEMATOCRIT. 21.1 % (36.0-48.0); LYMPHOCYTES % 31.1 % (20.0-50.0); MEAN CORPUSCULAR HEMOGLOBIN 27.1 pg (28.0-32.0); MEAN CORPUSCULAR HGB CONC 32.6 g/dL (31.0-37.0); MEAN CORPUSCULAR VOLUME 83.3 fL (81.0-99.0); MEAN PLATELET VOLUME 7.7 fl (7.4-10.4); NEUTROPHILS % 59.2 % (40.0-76.0); PLATELET 356 x1000/uL (130-400); RED BLOOD CELL COUNT 2.53 mill/uL (4.2-5.4); RED CELL DISTRIBUTION WIDTH 15.3 % (11.6-14.6); WHITE BLOOD COUNT 7.9 x1000/uL (4.5-11.0)
[2023-07-09 06:55] LABS: HEMOGLOBIN. 6.9 g/dL (12.0-16.0)
[2023-07-09 07:29] LABS: CALCIUM 7.6 mg/dL (8.7-10.4); CREATININE 3.2 mg/dL (0.6-1.0); POTASSIUM 3.7 mEq/L (3.5-5.1)
[2023-07-09] MEDS: ALPRAZOLAM 0.25 MG TABLET PO PRN (08:48)
[2023-07-09] MEDS: ASPIRIN 81MG TABLET PO SCH (08:48)
[2023-07-09] MEDS: CALCIUM ACETATE 667MG CAPSULE PO SCH ×3 (08:48→17:10)
[2023-07-09] MEDS: CLOPIDOGREL 75MG TABLET PO SCH (08:48)
[2023-07-09] MEDS: CARVEDILOL 3.125 MG TABLET PO SCH (08:48)
[2023-07-09] MEDS: CITRIC ACID/SODIUM CITRATE SOLN 15ML UDC PO SCH ×3 (08:49→17:10)
[2023-07-09] MEDS: GUAIFENESIN-DM 200MG-20MG/10ML UDC PO PRN ×2 (08:49→17:12)
[2023-07-09] MEDS ORDERED: LEVOFLOXACIN 500MG PREMIX 100 ML IV SCH (09:00)
[2023-07-09] MEDS: FUROSEMIDE 40MG/4ML VIAL IVP SCH (10:41)
[2023-07-09] MEDS: LEVOFLOXACIN 750MG PREMIX 150 ML IV SCH (10:43)
[2023-07-09] MEDS ORDERED: FUROSEMIDE 40MG/4ML VIAL IVP NR (16:30)
[2023-07-09] MEDS ORDERED: OXYCODONE HCL/ACETAMINOPHEN 5/325MG TABLET PO NR (17:45)
[2023-07-09 18:04] LABS: HEMATOCRIT 26.1 % (36.0-48.0); HEMOGLOBIN 8.4 g/dL (12.0-16.0)
[2023-07-09] MEDS: CARVEDILOL 6.25 MG TABLET PO SCH (21:28)
[2023-07-10] VITALS (19 sets, daily range): BP systolic 100–138; BP diastolic 64–101; PULSE 85–103; RESP 15–28; TEMP 97.7–98.7; O2SAT 84–99
[2023-07-10] MEDS: BLOOD SUGAR DIAGNOSTIC STRIP TEST SCH ×4 (00:47→17:10)
[2023-07-10] MEDS: IPRATROPIUM/ALBUTEROL 0.5-3(2.5)MG/3ML NEB HHN PRN ×5 (01:26→21:14)
[2023-07-10 05:35] LABS: BASOPHILS % 0.9 % (0.0-2.0); EOSINOPHILS % 2.3 % (0.0-5.0); HEMATOCRIT. 26.8 % (36.0-48.0); HEMOGLOBIN. 8.3 g/dL (12.0-16.0); LYMPHOCYTES % 23.2 % (20.0-50.0); MEAN CORPUSCULAR HEMOGLOBIN 26.9 pg (28.0-32.0); MEAN CORPUSCULAR HGB CONC 30.8 g/dL (31.0-37.0); MEAN CORPUSCULAR VOLUME 87.3 fL (81.0-99.0); MEAN PLATELET VOLUME 7.4 fl (7.4-10.4); MONOCYTES % 7.9 % (2.0-8.0); NEUTROPHILS % 65.7 % (40.0-76.0); PLATELET 365 x1000/uL (130-400); RED BLOOD CELL COUNT 3.07 mill/uL (4.2-5.4); RED CELL DISTRIBUTION WIDTH 15.5 % (11.6-14.6); WHITE BLOOD COUNT 9.1 x1000/uL (4.5-11.0)
[2023-07-10] MEDS: INSULIN LISPRO 100 UNITS/ML SUBCUT SCH ×4 (06:00→17:10)
[2023-07-10 07:20] LABS: CALCIUM 7.7 mg/dL (8.7-10.4); CREATININE 3.2 mg/dL (0.6-1.0); POTASSIUM 3.8 mEq/L (3.5-5.1)
[2023-07-10] MEDS: CITRIC ACID/SODIUM CITRATE SOLN 15ML UDC PO SCH ×3 (08:58→17:10)
[2023-07-10] MEDS: CARVEDILOL 6.25 MG TABLET PO SCH ×2 (08:58→21:33)
[2023-07-10] MEDS: ASPIRIN 81MG TABLET PO SCH (08:58)
[2023-07-10] MEDS: FUROSEMIDE 40MG/4ML VIAL IVP SCH (08:59)
[2023-07-10] MEDS: CLOPIDOGREL 75MG TABLET PO SCH (08:59)
[2023-07-10] MEDS: CALCIUM ACETATE 667MG CAPSULE PO SCH ×3 (08:59→17:10)
[2023-07-10] MEDS: GUAIFENESIN-DM 200MG-20MG/10ML UDC PO PRN ×2 (09:08→21:34)
[2023-07-10] MEDS: ALPRAZOLAM 0.25 MG TABLET PO PRN ×2 (11:05→22:35)
[2023-07-10 11:35] LABS: BG BASE EXCESS -3.3 mmol/L (-2.0-2.0); BG CARBOXYHEMOGLOBIN 0.4 % (0.5-1.5); BG DEOXYHEMOGLOBIN 15.7 % (0.0-5.0); BG FRACTION INSPIRED OXYGEN 21; BG HCO3 ACT 20.8 mmol/L (22.0-26.0); BG METHEMOGLOBIN 0.3 % (0.0-1.5); BG OXYGEN SATURATION 84.2 % (92.0-98.5); BG OXYHEMOGLOBIN 83.6 % (94.0-97.0); BG PCO2 33.1 mmHg (35.0-45.0); BG PH 7.416 (7.350-7.450); BG PO2 48.2 mmHg (75.0-100.0); BG SAMPLE SITE LEFT RADIAL; BG TOTAL HEMOGLOBIN 8.3 g/dL (12.0-18.0); BG VENT MODE ROOM AIR
[2023-07-10 13:07] LABS: ATYPICAL P-ANCA <1:20 titer (Neg:<1:20); CYTOPLASMIC C-ANCA <1:20 titer (Neg:<1:20); PERINUCLEAR P-ANCA <1:20 titer (Neg:<1:20)
[2023-07-10 17:07] LABS: ANTI-MYELOPEROXIDASE AB < 0.2 units (0.0-0.9); ANTI-PROTEINASE 3 ABS < 0.2 units (0.0-0.9)
[2023-07-10] MEDS: MORPHINE SULFATE 2 MG/ML CPJ (NOT FOR IM USE) IV PRN (22:56)
[2023-07-10 23:51] LABS: BG BASE EXCESS -1.7 mmol/L (-2.0-2.0); BG CARBOXYHEMOGLOBIN 0.3 % (0.5-1.5); BG FRACTION INSPIRED OXYGEN 50; BG METHEMOGLOBIN 0.3 % (0.0-1.5); BG OXYGEN SATURATION 87.9 % (92.0-98.5); BG OXYHEMOGLOBIN 87.4 % (94.0-97.0); BG PCO2 32.7 mmHg (35.0-45.0); BG PH 7.446 (7.350-7.450); BG PO2 54.5 mmHg (75.0-100.0); BG SAMPLE SITE LEFT RADIAL; BG TOTAL HEMOGLOBIN 7.9 g/dL (12.0-18.0); BG VENT MODE MASK - VENTI
[2023-07-11] VITALS (12 sets, daily range): BP systolic 104–124; BP diastolic 69–88; PULSE 83–94; RESP 15–24; TEMP 97.7–98.4
[2023-07-11] MEDS: MORPHINE SULFATE 2 MG/ML CPJ (NOT FOR IM USE) IV PRN ×5 (03:01→23:35)
[2023-07-11] MEDS: BLOOD SUGAR DIAGNOSTIC STRIP TEST SCH ×5 (05:35→23:36)
[2023-07-11] MEDS: INSULIN LISPRO 100 UNITS/ML SUBCUT SCH ×5 (05:36→23:36)
[2023-07-11] MEDS: CLOPIDOGREL 75MG TABLET PO SCH (08:58)
[2023-07-11] MEDS: CALCIUM ACETATE 667MG CAPSULE PO SCH ×3 (08:58→17:51)
[2023-07-11] MEDS: CARVEDILOL 6.25 MG TABLET PO SCH ×2 (08:59→20:51)
[2023-07-11] MEDS: CITRIC ACID/SODIUM CITRATE SOLN 15ML UDC PO SCH ×3 (09:00→17:52)
[2023-07-11] MEDS: FUROSEMIDE 40MG/4ML VIAL IVP SCH ×2 (09:01→17:52)
[2023-07-11] MEDS: ASPIRIN 81MG TABLET PO SCH (09:01)
[2023-07-11 09:42] LABS: BASOPHILS % 0.9 % (0.0-2.0); HEMATOCRIT. 24.3 % (36.0-48.0); HEMOGLOBIN. 7.7 g/dL (12.0-16.0); LYMPHOCYTES % 33.2 % (20.0-50.0); MEAN CORPUSCULAR HEMOGLOBIN 26.6 pg (28.0-32.0); MEAN CORPUSCULAR HGB CONC 31.7 g/dL (31.0-37.0); MEAN CORPUSCULAR VOLUME 83.9 fL (81.0-99.0); MEAN PLATELET VOLUME 7.3 fl (7.4-10.4); MONOCYTES % 7.8 % (2.0-8.0); NEUTROPHILS % 55.1 % (40.0-76.0); PLATELET 386 x1000/uL (130-400); RED BLOOD CELL COUNT 2.89 mill/uL (4.2-5.4); RED CELL DISTRIBUTION WIDTH 14.9 % (11.6-14.6); WHITE BLOOD COUNT 7.7 x1000/uL (4.5-11.0)
[2023-07-11] MEDS: GUAIFENESIN-DM 200MG-20MG/10ML UDC PO PRN ×2 (10:08→23:42)
[2023-07-11] MEDS: LEVOFLOXACIN 750MG PREMIX 150 ML IV SCH (10:16)
[2023-07-11 10:39] LABS: CALCIUM 7.7 mg/dL (8.7-10.4); CREATININE 3.5 mg/dL (0.6-1.0); POTASSIUM 3.9 mEq/L (3.5-5.1)
[2023-07-11] MEDS ORDERED: NALOXONE HCL 0.4MG/ML VIAL IV PRN (13:00)
[2023-07-11] MEDS: LORATADINE 10MG TABLET PO SCH (13:01)
[2023-07-11 17:29] LABS: CREATINE KINASE 134 IU/L (34-145)
[2023-07-11] MEDS: ENOXAPARIN 120MG/0.8ML SYR SUBCUT SCH (20:52)
[2023-07-12] VITALS (18 sets, daily range): BP systolic 103–134; BP diastolic 72–98; PULSE 80–96; RESP 15–24; TEMP 97.3–98.3
[2023-07-12] MEDS: MORPHINE SULFATE 2 MG/ML CPJ (NOT FOR IM USE) IV PRN ×5 (03:36→20:45)
[2023-07-12] MEDS: INSULIN LISPRO 100 UNITS/ML SUBCUT SCH ×3 (06:00→17:33)
[2023-07-12] MEDS: BLOOD SUGAR DIAGNOSTIC STRIP TEST SCH ×3 (06:00→17:33)
[2023-07-12 06:26] LABS: BASOPHILS % 0.8 % (0.0-2.0); EOSINOPHILS % 2.7 % (0.0-5.0); HEMATOCRIT. 24.8 % (36.0-48.0); HEMOGLOBIN. 8.1 g/dL (12.0-16.0); LYMPHOCYTES % 21.3 % (20.0-50.0); MEAN CORPUSCULAR HEMOGLOBIN 27.1 pg (28.0-32.0); MEAN CORPUSCULAR HGB CONC 32.5 g/dL (31.0-37.0); MEAN CORPUSCULAR VOLUME 83.3 fL (81.0-99.0); MEAN PLATELET VOLUME 7.4 fl (7.4-10.4); MONOCYTES % 9.9 % (2.0-8.0); NEUTROPHILS % 65.3 % (40.0-76.0); PLATELET 395 x1000/uL (130-400); RED BLOOD CELL COUNT 2.97 mill/uL (4.2-5.4); RED CELL DISTRIBUTION WIDTH 14.4 % (11.6-14.6); WHITE BLOOD COUNT 8.6 x1000/uL (4.5-11.0)
[2023-07-12 07:38] LABS: CALCIUM 7.8 mg/dL (8.7-10.4); CREATININE 3.6 mg/dL (0.6-1.0); POTASSIUM 4.2 mEq/L (3.5-5.1)
[2023-07-12] MEDS: CARVEDILOL 6.25 MG TABLET PO SCH ×2 (08:37→21:51)
[2023-07-12] MEDS: CITRIC ACID/SODIUM CITRATE SOLN 15ML UDC PO SCH ×3 (08:38→16:42)
[2023-07-12] MEDS: LORATADINE 10MG TABLET PO SCH (08:39)
[2023-07-12] MEDS: CLOPIDOGREL 75MG TABLET PO SCH (08:39)
[2023-07-12] MEDS: FUROSEMIDE 40MG/4ML VIAL IVP SCH ×2 (08:39→16:41)
[2023-07-12] MEDS: CALCIUM ACETATE 667MG CAPSULE PO SCH ×3 (08:39→16:41)
[2023-07-12] MEDS ORDERED: LIDOCAINE HCL 1% 10 MG/ML 10ML VIAL ONE (11:20)
[2023-07-12] MEDS ORDERED: IOHEXOL-350 100 ML BOTTLE ONE (12:55)
[2023-07-12 12:57] LABS: HEPATITIS A AB IGM NEGATIVE (Negative); HEPATITIS B CORE AB IGM NEGATIVE (Negative); HEPATITIS B SURFACE ANTIGEN NEGATIVE (Negative); HEPATITIS C AB NON REACTIVE (Neg) (Negative)
[2023-07-12] MEDS: ALPRAZOLAM 0.25 MG TABLET PO PRN (16:42)
[2023-07-12] MEDS: ENOXAPARIN 120MG/0.8ML SYR SUBCUT SCH (22:09)
[2023-07-13] VITALS (20 sets, daily range): BP systolic 100–118; BP diastolic 66–84; PULSE 83–92; RESP 14–27; TEMP 97.8–99
[2023-07-13] MEDS: MORPHINE SULFATE 2 MG/ML CPJ (NOT FOR IM USE) IV PRN ×5 (00:48→20:32)
[2023-07-13] MEDS: INSULIN LISPRO 100 UNITS/ML SUBCUT SCH ×4 (05:28→17:21)
[2023-07-13] MEDS: BLOOD SUGAR DIAGNOSTIC STRIP TEST SCH ×4 (05:28→17:21)
[2023-07-13 06:44] LABS: HEMATOCRIT 22.6 % (36.0-48.0); HEMOGLOBIN 7.3 g/dL (12.0-16.0); MEAN CORPUSCULAR HEMOGLOBIN 27.5 pg (28.0-32.0); MEAN CORPUSCULAR HGB CONC 32.4 g/dL (31.0-37.0); MEAN CORPUSCULAR VOLUME 84.9 fL (81.0-99.0); PLATELET 384 x1000/uL (130-400); RED BLOOD CELL COUNT 2.66 mill/uL (4.2-5.4); RED CELL DISTRIBUTION WIDTH 14.6 % (11.6-14.6); WHITE BLOOD COUNT 8.5 x1000/uL (4.5-11.0)
[2023-07-13 07:12] LABS: ALANINE AMINOTRANSFERASE < 7 IU/L (10-49); ALBUMIN 2.2 g/dL (3.2-4.8); ASPARTATE AMINOTRANSFERASE 11 IU/L (<34); BILIRUBIN TOTAL < 0.2 mg/dL (0.1-1.0); CALCIUM 8.2 mg/dL (8.7-10.4); CARBON DIOXIDE 20 mEq/L (21-32); CHLORIDE 105 mEq/L (98-107); CREATININE 3.5 mg/dL (0.6-1.0); GLUCOSE 82 mg/dL (70-105); PHOSPHORUS 6.7 mg/dL (2.5-4.9); POTASSIUM 4.5 mEq/L (3.5-5.1); PROTEIN TOTAL 4.2 g/dL (6.0-8.3); SODIUM 136 mEq/L (136-145); UREA NITROGEN BLOOD 43 mg/dL (9-23)
[2023-07-13] MEDS: GUAIFENESIN-DM 200MG-20MG/10ML UDC PO PRN ×2 (08:39→20:30)
[2023-07-13] MEDS: CITRIC ACID/SODIUM CITRATE SOLN 15ML UDC PO SCH ×3 (08:39→17:22)
[2023-07-13] MEDS: CALCIUM ACETATE 667MG CAPSULE PO SCH ×3 (08:40→17:21)
[2023-07-13] MEDS: LORATADINE 10MG TABLET PO SCH (08:40)
[2023-07-13] MEDS: CLOPIDOGREL 75MG TABLET PO SCH (08:40)
[2023-07-13] MEDS: FUROSEMIDE 40MG/4ML VIAL IVP SCH ×2 (08:41→17:21)
[2023-07-13] MEDS: CARVEDILOL 6.25 MG TABLET PO SCH ×2 (08:41→20:31)
[2023-07-13] MEDS ORDERED: LEVOFLOXACIN 500MG PREMIX 100 ML IV SCH (11:00)
[2023-07-13] MEDS: ENOXAPARIN 120MG/0.8ML SYR SUBCUT SCH (20:30)
[2023-07-14] VITALS (12 sets, daily range): BP systolic 89–131; BP diastolic 61–88; PULSE 83–90; RESP 14–23; TEMP 97.4–98.9
[2023-07-14] MEDS: MORPHINE SULFATE 2 MG/ML CPJ (NOT FOR IM USE) IV PRN ×5 (02:10→23:56)
[2023-07-14] MEDS: INSULIN LISPRO 100 UNITS/ML SUBCUT SCH ×5 (06:00→23:56)
[2023-07-14] MEDS: BLOOD SUGAR DIAGNOSTIC STRIP TEST SCH ×5 (06:37→23:56)
[2023-07-14 08:17] LABS: CALCIUM 7.7 mg/dL (8.7-10.4); CREATININE 3.4 mg/dL (0.6-1.0); POTASSIUM 4.4 mEq/L (3.5-5.1)
[2023-07-14] MEDS: FUROSEMIDE 40MG/4ML VIAL IVP SCH ×2 (08:35→19:07)
[2023-07-14] MEDS: CALCIUM ACETATE 667MG CAPSULE PO SCH ×3 (08:35→19:10)
[2023-07-14] MEDS: CLOPIDOGREL 75MG TABLET PO SCH (08:35)
[2023-07-14] MEDS: LORATADINE 10MG TABLET PO SCH (08:36)
[2023-07-14] MEDS: CARVEDILOL 6.25 MG TABLET PO SCH ×2 (08:36→21:41)
[2023-07-14] MEDS: CITRIC ACID/SODIUM CITRATE SOLN 15ML UDC PO SCH (08:37)
[2023-07-14 09:02] LABS: BASOPHILS % 0.7 % (0.0-2.0); EOSINOPHILS % 2.3 % (0.0-5.0); HEMATOCRIT. 21.8 % (36.0-48.0); HEMOGLOBIN. 7.1 g/dL (12.0-16.0); MEAN CORPUSCULAR HEMOGLOBIN 26.8 pg (28.0-32.0); MEAN CORPUSCULAR HGB CONC 32.4 g/dL (31.0-37.0); MEAN CORPUSCULAR VOLUME 82.7 fL (81.0-99.0); MEAN PLATELET VOLUME 7.8 fl (7.4-10.4); MONOCYTES % 11.6 % (2.0-8.0); NEUTROPHILS % 66.4 % (40.0-76.0); PLATELET 414 x1000/uL (130-400); RED BLOOD CELL COUNT 2.64 mill/uL (4.2-5.4); RED CELL DISTRIBUTION WIDTH 14.5 % (11.6-14.6); WHITE BLOOD COUNT 9.4 x1000/uL (4.5-11.0)
[2023-07-14] MEDS: ENOXAPARIN 120MG/0.8ML SYR SUBCUT SCH (21:41)
[2023-07-15] VITALS (20 sets, daily range): BP systolic 98–138; BP diastolic 68–96; PULSE 78–90; RESP 11–20; TEMP 97.2–99
[2023-07-15] MEDS: MORPHINE SULFATE 2 MG/ML CPJ (NOT FOR IM USE) IV PRN ×4 (04:21→21:27)
[2023-07-15] MEDS: BLOOD SUGAR DIAGNOSTIC STRIP TEST SCH ×4 (05:29→23:18)
[2023-07-15] MEDS: INSULIN LISPRO 100 UNITS/ML SUBCUT SCH ×4 (05:29→23:20)
[2023-07-15 07:57] LABS: BASOPHILS % 0.8 % (0.0-2.0); EOSINOPHILS % 4.1 % (0.0-5.0); HEMATOCRIT. 22.3 % (36.0-48.0); HEMOGLOBIN. 7.4 g/dL (12.0-16.0); LYMPHOCYTES % 18.2 % (20.0-50.0); MEAN CORPUSCULAR HEMOGLOBIN 27.1 pg (28.0-32.0); MEAN CORPUSCULAR VOLUME 81.9 fL (81.0-99.0); MEAN PLATELET VOLUME 7.1 fl (7.4-10.4); MONOCYTES % 11.1 % (2.0-8.0); NEUTROPHILS % 65.8 % (40.0-76.0); PLATELET 433 x1000/uL (130-400); RED BLOOD CELL COUNT 2.72 mill/uL (4.2-5.4); RED CELL DISTRIBUTION WIDTH 14.6 % (11.6-14.6); WHITE BLOOD COUNT 9.6 x1000/uL (4.5-11.0)
[2023-07-15 08:18] LABS: CALCIUM 7.8 mg/dL (8.7-10.4); CREATININE 3.8 mg/dL (0.6-1.0); POTASSIUM 4.5 mEq/L (3.5-5.1)
[2023-07-15] MEDS: LORATADINE 10MG TABLET PO SCH (08:47)
[2023-07-15] MEDS: FUROSEMIDE 40MG/4ML VIAL IVP SCH ×2 (08:47→17:00)
[2023-07-15] MEDS: CARVEDILOL 6.25 MG TABLET PO SCH ×2 (08:47→21:12)
[2023-07-15] MEDS: CALCIUM ACETATE 667MG CAPSULE PO SCH ×3 (08:47→17:00)
[2023-07-15] MEDS: CLOPIDOGREL 75MG TABLET PO SCH (08:48)
[2023-07-15] MEDS: NYSTATIN 100,000 UNITS/ML 5ML UDC SSW SCH ×2 (15:40→23:16)
[2023-07-15 16:59] LABS: BG BASE EXCESS 1.2 mmol/L (-2.0-2.0); BG CARBOXYHEMOGLOBIN 0.1 % (0.5-1.5); BG DEOXYHEMOGLOBIN 1.9 % (0.0-5.0); BG HCO3 ACT 24.7 mmol/L (22.0-26.0); BG METHEMOGLOBIN 0.3 % (0.0-1.5); BG OXYGEN SATURATION 98.1 % (92.0-98.5); BG OXYHEMOGLOBIN 97.7 % (94.0-97.0); BG PCO2 34.4 mmHg (35.0-45.0); BG PH 7.474 (7.350-7.450); BG PO2 132.6 mmHg (75.0-100.0); BG SAMPLE SITE LEFT RADIAL; BG TOTAL HEMOGLOBIN 8.5 g/dL (12.0-18.0); BG VENT MODE MASK - NRB
[2023-07-15] MEDS: ENOXAPARIN 120MG/0.8ML SYR SUBCUT SCH (21:12)
[2023-07-15] MEDS: EPOETIN ALFA 4000UNITS/ML VIAL SUBCUT SCH (21:41)
[2023-07-16] VITALS (21 sets, daily range): BP systolic 89–135; BP diastolic 57–91; PULSE 72–85; RESP 11–18; TEMP 97–97.9
[2023-07-16] MEDS: MORPHINE SULFATE 2 MG/ML CPJ (NOT FOR IM USE) IV PRN ×4 (02:28→20:20)
[2023-07-16 05:16] LABS: BASOPHILS % 0.8 % (0.0-2.0); EOSINOPHILS % 4.5 % (0.0-5.0); HEMATOCRIT. 21.2 % (36.0-48.0); HEMOGLOBIN. 7.1 g/dL (12.0-16.0); MEAN CORPUSCULAR HGB CONC 33.4 g/dL (31.0-37.0); MEAN PLATELET VOLUME 7.2 fl (7.4-10.4); MONOCYTES % 11.4 % (2.0-8.0); NEUTROPHILS % 59.3 % (40.0-76.0); PLATELET 448 x1000/uL (130-400); RED BLOOD CELL COUNT 2.62 mill/uL (4.2-5.4); RED CELL DISTRIBUTION WIDTH 14.4 % (11.6-14.6)
[2023-07-16 05:39] LABS: CALCIUM 7.8 mg/dL (8.7-10.4); CREATININE 3.2 mg/dL (0.6-1.0); POTASSIUM 4.2 mEq/L (3.5-5.1)
[2023-07-16] MEDS: BLOOD SUGAR DIAGNOSTIC STRIP TEST SCH ×2 (06:00→12:00)
[2023-07-16] MEDS: INSULIN LISPRO 100 UNITS/ML SUBCUT SCH ×2 (06:00→12:00)
[2023-07-16] MEDS: NYSTATIN 100,000 UNITS/ML 5ML UDC SSW SCH ×3 (06:03→21:52)
[2023-07-16] MEDS: CARVEDILOL 6.25 MG TABLET PO SCH ×2 (08:57→20:21)
[2023-07-16] MEDS: FUROSEMIDE 40MG/4ML VIAL IVP SCH ×2 (08:57→17:29)
[2023-07-16] MEDS: CLOPIDOGREL 75MG TABLET PO SCH (08:57)
[2023-07-16] MEDS: CALCIUM ACETATE 667MG CAPSULE PO SCH ×3 (08:57→17:29)
[2023-07-16] MEDS ORDERED: NALOXONE HCL 0.4MG/ML VIAL IV PRN (13:30)
[2023-07-16 15:47] LABS: BG BASE EXCESS 0.6 mmol/L (-2.0-2.0); BG CARBOXYHEMOGLOBIN 0.2 % (0.5-1.5); BG DEOXYHEMOGLOBIN 5.7 % (0.0-5.0); BG HCO3 ACT 25.1 mmol/L (22.0-26.0); BG METHEMOGLOBIN 0.1 % (0.0-1.5); BG OXYGEN SATURATION 94.3 % (92.0-98.5); BG PCO2 39.8 mmHg (35.0-45.0); BG PH 7.418 (7.350-7.450); BG PO2 77.3 mmHg (75.0-100.0); BG SAMPLE SITE RIGHT RADIAL; BG TOTAL HEMOGLOBIN 7.7 g/dL (12.0-18.0); BG VENT MODE MASK - SIMPLE
[2023-07-16] MEDS: ENOXAPARIN 120MG/0.8ML SYR SUBCUT SCH (20:21)
[2023-07-17] VITALS (20 sets, daily range): BP systolic 96–136; BP diastolic 65–94; PULSE 76–86; RESP 11–18; TEMP 97.3–98.7
[2023-07-17] MEDS: MORPHINE SULFATE 2 MG/ML CPJ (NOT FOR IM USE) IV PRN ×4 (00:04→21:07)
[2023-07-17] MEDS: NYSTATIN 100,000 UNITS/ML 5ML UDC SSW SCH ×3 (05:09→21:07)
[2023-07-17] MEDS: CALCIUM ACETATE 667MG CAPSULE PO SCH ×3 (09:50→17:37)
[2023-07-17] MEDS: FUROSEMIDE 40MG/4ML VIAL IVP SCH ×2 (09:50→17:37)
[2023-07-17] MEDS: LORATADINE 10MG TABLET PO SCH (09:51)
[2023-07-17] MEDS: CARVEDILOL 6.25 MG TABLET PO SCH ×2 (09:51→20:54)
[2023-07-17] MEDS: CLOPIDOGREL 75MG TABLET PO SCH (09:51)
[2023-07-17] MEDS: ENOXAPARIN 120MG/0.8ML SYR SUBCUT SCH (20:53)
[2023-07-18] VITALS (12 sets, daily range): BP systolic 98–139; BP diastolic 66–90; PULSE 74–91; RESP 7–20; TEMP 97.2–98.5
[2023-07-18] MEDS: MORPHINE SULFATE 2 MG/ML CPJ (NOT FOR IM USE) IV PRN ×4 (01:31→23:29)
[2023-07-18] MEDS: NYSTATIN 100,000 UNITS/ML 5ML UDC SSW SCH ×3 (05:56→21:29)
[2023-07-18 06:28] LABS: BASOPHILS % 1.3 % (0.0-2.0); EOSINOPHILS % 4.2 % (0.0-5.0); HEMATOCRIT. 23.4 % (36.0-48.0); HEMOGLOBIN. 7.7 g/dL (12.0-16.0); LYMPHOCYTES % 28.1 % (20.0-50.0); MEAN CORPUSCULAR HEMOGLOBIN 26.7 pg (28.0-32.0); MEAN CORPUSCULAR VOLUME 80.8 fL (81.0-99.0); MONOCYTES % 13.3 % (2.0-8.0); NEUTROPHILS % 53.1 % (40.0-76.0); PLATELET 447 x1000/uL (130-400); RED CELL DISTRIBUTION WIDTH 14.3 % (11.6-14.6); WHITE BLOOD COUNT 8.3 x1000/uL (4.5-11.0)
[2023-07-18 06:34] LABS: ALANINE AMINOTRANSFERASE 13 IU/L (10-49); ALBUMIN 2.3 g/dL (3.2-4.8); ASPARTATE AMINOTRANSFERASE 19 IU/L (<34); BILIRUBIN TOTAL < 0.2 mg/dL (0.1-1.0); CALCIUM 7.8 mg/dL (8.7-10.4); CARBON DIOXIDE 29 mEq/L (21-32); CHLORIDE 102 mEq/L (98-107); CREATININE 2.9 mg/dL (0.6-1.0); GLUCOSE 94 mg/dL (70-105); POTASSIUM 3.9 mEq/L (3.5-5.1); PROTEIN TOTAL 4.4 g/dL (6.0-8.3); SODIUM 137 mEq/L (136-145); UREA NITROGEN BLOOD 28 mg/dL (9-23)
[2023-07-18] MEDS: CLOPIDOGREL 75MG TABLET PO SCH (09:05)
[2023-07-18] MEDS: CALCIUM ACETATE 667MG CAPSULE PO SCH ×3 (09:05→18:58)
[2023-07-18] MEDS: LORATADINE 10MG TABLET PO SCH (09:05)
[2023-07-18] MEDS: CARVEDILOL 6.25 MG TABLET PO SCH ×2 (09:06→21:30)
[2023-07-18] MEDS: FUROSEMIDE 40MG/4ML VIAL IVP SCH ×2 (09:06→18:58)
[2023-07-18] MEDS ORDERED: HYDROCODONE/ACETAMINOPHEN 5/325MG TABLET PO PRN (14:15)
[2023-07-18] MEDS: ACETAMINOPHEN 325MG TABLET PO PRN (15:58)
[2023-07-18] MEDS: EPOETIN ALFA 4000UNITS/ML VIAL SUBCUT SCH (21:30)
[2023-07-18] MEDS: ENOXAPARIN 120MG/0.8ML SYR SUBCUT SCH (21:30)
[2023-07-19] VITALS (31 sets, daily range): BP systolic 86–135; BP diastolic 60–97; PULSE 77–93; RESP 10–20; TEMP 97.4–98.4
[2023-07-19] MEDS: NYSTATIN 100,000 UNITS/ML 5ML UDC SSW SCH ×3 (05:22→21:04)
[2023-07-19] MEDS: MORPHINE SULFATE 2 MG/ML CPJ (NOT FOR IM USE) IV PRN (06:05)
[2023-07-19] MEDS ORDERED: CLINDAMYCIN 600MG PREMIX 50 ML IV SCH (10:00)
[2023-07-19] MEDS ORDERED: LIDOCAINE HCL 1% 10 MG/ML 10ML VIAL ONE (11:00)
[2023-07-19] MEDS ORDERED: FENTANYL CITRATE/PF 50MCG/ML 2ML VIAL ONE (11:03)
[2023-07-19] MEDS ORDERED: FENTANYL CITRATE/PF 50MCG/ML 2ML VIAL IV ONE (11:30)
[2023-07-19] MEDS: FUROSEMIDE 40MG/4ML VIAL IVP SCH ×2 (12:19→19:50)
[2023-07-19] MEDS: LORATADINE 10MG TABLET PO SCH (12:20)
[2023-07-19] MEDS: CARVEDILOL 6.25 MG TABLET PO SCH ×2 (12:20→21:00)
[2023-07-19] MEDS: CLOPIDOGREL 75MG TABLET PO SCH (12:20)
[2023-07-19] MEDS: CALCIUM ACETATE 667MG CAPSULE PO SCH ×3 (12:20→19:49)
[2023-07-19] MEDS: ACETAMINOPHEN 325MG TABLET PO PRN (12:21)
[2023-07-19 13:11] LABS: HEMATOCRIT 25.3 % (36.0-48.0); HEMOGLOBIN 8.1 g/dL (12.0-16.0); MEAN CORPUSCULAR HEMOGLOBIN 25.9 pg (28.0-32.0); MEAN CORPUSCULAR HGB CONC 31.9 g/dL (31.0-37.0); MEAN CORPUSCULAR VOLUME 81.3 fL (81.0-99.0); PLATELET 529 x1000/uL (130-400); RED BLOOD CELL COUNT 3.11 mill/uL (4.2-5.4); RED CELL DISTRIBUTION WIDTH 14.4 % (11.6-14.6); WHITE BLOOD COUNT 8.1 x1000/uL (4.5-11.0)
[2023-07-19 13:35] LABS: ALANINE AMINOTRANSFERASE 17 IU/L (10-49); ALBUMIN 2.6 g/dL (3.2-4.8); ASPARTATE AMINOTRANSFERASE 24 IU/L (<34); BILIRUBIN TOTAL 0.2 mg/dL (0.1-1.0); CARBON DIOXIDE 26 mEq/L (21-32); CHLORIDE 101 mEq/L (98-107); CREATININE 3.2 mg/dL (0.6-1.0); GLUCOSE 83 mg/dL (70-105); PHOSPHORUS 4.4 mg/dL (2.5-4.9); POTASSIUM 4.5 mEq/L (3.5-5.1); PROTEIN TOTAL 5.2 g/dL (6.0-8.3); SODIUM 135 mEq/L (136-145); UREA NITROGEN BLOOD 36 mg/dL (9-23)
[2023-07-19] MEDS: ENOXAPARIN 120MG/0.8ML SYR SUBCUT SCH (21:04)
[2023-07-20] VITALS (12 sets, daily range): BP systolic 105–139; BP diastolic 67–94; PULSE 80–93; RESP 6–30; TEMP 97.2–98
[2023-07-20] MEDS: ACETAMINOPHEN 325MG TABLET PO PRN ×3 (01:19→21:32)
[2023-07-20] MEDS: NYSTATIN 100,000 UNITS/ML 5ML UDC SSW SCH ×2 (06:00→16:51)
[2023-07-20] MEDS: LORATADINE 10MG TABLET PO SCH (08:58)
[2023-07-20] MEDS: CALCIUM ACETATE 667MG CAPSULE PO SCH ×3 (08:58→18:11)
[2023-07-20] MEDS: CLOPIDOGREL 75MG TABLET PO SCH (08:58)
[2023-07-20] MEDS: CARVEDILOL 6.25 MG TABLET PO SCH ×2 (09:00→20:45)
[2023-07-20] MEDS: FUROSEMIDE 40MG/4ML VIAL IVP SCH ×2 (09:01→16:51)
[2023-07-20] MEDS: GUAIFENESIN-DM 200MG-20MG/10ML UDC PO PRN (09:21)
[2023-07-20] MEDS ORDERED: MORPHINE SULFATE 2 MG/ML CPJ (NOT FOR IM USE) IV SCH (12:00)
[2023-07-20] MEDS ORDERED: MAGNESIUM 2 G PREMIX 50 ML IV SCH (13:00)
[2023-07-20] MEDS ORDERED: SITA50TA3 PO (15:43)
[2023-07-20] MEDS ORDERED: CHOL500010 PO (15:43)
[2023-07-20] MEDS ORDERED: ATOR20TA65 PO (15:43)
[2023-07-20] MEDS ORDERED: FAMO20TA8 PO (15:43)
[2023-07-20] MEDS ORDERED: FURO20TA4 PO (15:43)
[2023-07-20] MEDS ORDERED: LISI10TA26 PO (15:43)
[2023-07-20] MEDS ORDERED: EZET10TA81 PO (15:43)
[2023-07-20] MEDS ORDERED: LORA10TA7 PO (15:43)
[2023-07-20 18:11] LABS: BASOPHILS % 0.9 % (0.0-2.0); EOSINOPHILS % 2.4 % (0.0-5.0); HEMATOCRIT. 24.2 % (36.0-48.0); HEMOGLOBIN. 7.9 g/dL (12.0-16.0); MEAN CORPUSCULAR HEMOGLOBIN 26.7 pg (28.0-32.0); MEAN CORPUSCULAR HGB CONC 32.8 g/dL (31.0-37.0); MEAN CORPUSCULAR VOLUME 81.5 fL (81.0-99.0); MEAN PLATELET VOLUME 6.9 fl (7.4-10.4); MONOCYTES % 10.8 % (2.0-8.0); NEUTROPHILS % 64.9 % (40.0-76.0); PLATELET 487 x1000/uL (130-400); RED BLOOD CELL COUNT 2.97 mill/uL (4.2-5.4); RED CELL DISTRIBUTION WIDTH 14.6 % (11.6-14.6); WHITE BLOOD COUNT 9.3 x1000/uL (4.5-11.0)
[2023-07-20 18:36] LABS: ALANINE AMINOTRANSFERASE 16 IU/L (10-49); ALBUMIN 2.4 g/dL (3.2-4.8); ASPARTATE AMINOTRANSFERASE 20 IU/L (<34); BILIRUBIN TOTAL < 0.2 mg/dL (0.1-1.0); CARBON DIOXIDE 26 mEq/L (21-32); CHLORIDE 102 mEq/L (98-107); CREATININE 3.4 mg/dL (0.6-1.0); GLUCOSE 119 mg/dL (70-105); PHOSPHORUS 4.3 mg/dL (2.5-4.9); POTASSIUM 4.8 mEq/L (3.5-5.1); PROTEIN TOTAL 4.5 g/dL (6.0-8.3); SODIUM 135 mEq/L (136-145); UREA NITROGEN BLOOD 34 mg/dL (9-23)
[2023-07-20] MEDS: ENOXAPARIN 120MG/0.8ML SYR SUBCUT SCH (20:48)
[2023-07-20] MEDS ORDERED: EPOETIN ALFA 4000UNITS/ML VIAL SUBCUT SCH (21:00)
[2023-07-21] VITALS (19 sets, daily range): BP systolic 92–134; BP diastolic 59–91; PULSE 79–85; RESP 10–20; TEMP 97.6–98.8; O2SAT 94
[2023-07-21] MEDS: CLOPIDOGREL 75MG TABLET PO SCH (17:03)
[2023-07-21] MEDS: LORATADINE 10MG TABLET PO SCH (17:03)
[2023-07-21] MEDS: CALCIUM ACETATE 667MG CAPSULE PO SCH (17:03)
[2023-07-21] MEDS: CARVEDILOL 6.25 MG TABLET PO SCH (17:05)
[2023-07-21] MEDS: FUROSEMIDE 40MG/4ML VIAL IVP SCH (17:05)
== END 2023-07-21 19:10 | disposition home health service (06) | DRG 174 ==
LOC: ER 23:08 → CVICU 07-06 00:04 → EDBEDREQDT 07-06 00:19 → EDBEDREQSVC 07-06 00:19 → EDBEDREQ 07-06 00:19 → EDBEDREQTM 07-06 00:19 → 5EST 07-09 14:48
PROVIDERS: ADMIT Internal Medicine; ATTEND Internal Medicine
PROC: 027034Z Dilation of Coronary Artery, One Artery with Drug-eluting Intraluminal Device, Percutaneous Approach (ICD-10-PCS; principal; 2023-07-06)
PROC: 5A1945Z Respiratory Ventilation, 24-96 Consecutive Hours (ICD-10-PCS; 2023-07-06)
PROC: 4A023N7 Measurement of Cardiac Sampling and Pressure, Left Heart, Percutaneous Approach (ICD-10-PCS; 2023-07-06)
PROC: B211YZZ Fluoroscopy of Multiple Coronary Arteries using Other Contrast (ICD-10-PCS; 2023-07-06)
PROC: B41FYZZ Fluoroscopy of Right Lower Extremity Arteries using Other Contrast (ICD-10-PCS; 2023-07-06)
PROC: 0BH17EZ Insertion of Endotracheal Airway into Trachea, Via Natural or Artificial Opening (ICD-10-PCS; 2023-07-06)
PROC: 30233N1 Transfusion of Nonautologous Red Blood Cells into Peripheral Vein, Percutaneous Approach (ICD-10-PCS; 2023-07-09)
PROC: 02HV33Z Insertion of Infusion Device into Superior Vena Cava, Percutaneous Approach (ICD-10-PCS; 2023-07-12)
PROC: B548ZZA Ultrasonography of Superior Vena Cava, Guidance (ICD-10-PCS; 2023-07-12)
PROC: B5181ZA Fluoroscopy of Superior Vena Cava using Low Osmolar Contrast, Guidance (ICD-10-PCS; 2023-07-12)
PROC: 5A1D70Z Performance of Urinary Filtration, Intermittent, Less than 6 Hours Per Day (ICD-10-PCS; 2023-07-12)
PROC: 5A1D70Z Performance of Urinary Filtration, Intermittent, Less than 6 Hours Per Day (ICD-10-PCS; 2023-07-13)
PROC: 5A1D70Z Performance of Urinary Filtration, Intermittent, Less than 6 Hours Per Day (ICD-10-PCS; 2023-07-15)
PROC: 5A1D70Z Performance of Urinary Filtration, Intermittent, Less than 6 Hours Per Day (ICD-10-PCS; 2023-07-16)
PROC: 5A1D70Z Performance of Urinary Filtration, Intermittent, Less than 6 Hours Per Day (ICD-10-PCS; 2023-07-17)
PROC: 0JH63XZ Insertion of Tunneled Vascular Access Device into Chest Subcutaneous Tissue and Fascia, Percutaneous Approach (ICD-10-PCS; 2023-07-19)
PROC: 02HV33Z Insertion of Infusion Device into Superior Vena Cava, Percutaneous Approach (ICD-10-PCS; 2023-07-19)
PROC: B548ZZA Ultrasonography of Superior Vena Cava, Guidance (ICD-10-PCS; 2023-07-19)
PROC: B5181ZA Fluoroscopy of Superior Vena Cava using Low Osmolar Contrast, Guidance (ICD-10-PCS; 2023-07-19)
PROC: 5A1D70Z Performance of Urinary Filtration, Intermittent, Less than 6 Hours Per Day (ICD-10-PCS; 2023-07-19)
PROC: 5A1D70Z Performance of Urinary Filtration, Intermittent, Less than 6 Hours Per Day (ICD-10-PCS; 2023-07-21)
DX: I21.19 ST elevation (STEMI) myocardial infarction involving other coronary artery of inferior wall (principal); J96.01 Acute respiratory failure with hypoxia; N17.0 Acute kidney failure with tubular necrosis; I50.23 Acute on chronic systolic (congestive) heart failure; K85.90 Acute pancreatitis without necrosis or infection, unspecified; J18.9 Pneumonia, unspecified organism; I82.401 Acute embolism and thrombosis of unspecified deep veins of right lower extremity; E87.20 Acidosis, unspecified; E83.39 Other disorders of phosphorus metabolism; E11.319 Type 2 diabetes mellitus with unspecified diabetic retinopathy without macular edema; E83.51 Hypocalcemia; N18.6 End stage renal disease; D64.9 Anemia, unspecified; E87.5 Hyperkalemia; E88.09 Other disorders of plasma-protein metabolism, not elsewhere classified; I13.2 Hypertensive heart and chronic kidney disease with heart failure and with stage 5 chronic kidney disease, or end stage renal disease; E11.22 Type 2 diabetes mellitus with diabetic chronic kidney disease; E87.1 Hypo-osmolality and hyponatremia; I25.10 Atherosclerotic heart disease of native coronary artery without angina pectoris; Z20.822 Contact with and (suspected) exposure to COVID-19; E66.9 Obesity, unspecified; E83.42 Hypomagnesemia; K21.9 Gastro-esophageal reflux disease without esophagitis; Z88.0 Allergy status to penicillin; Z88.1 Allergy status to other antibiotic agents; Z88.6 Allergy status to analgesic agent; Z79.01 Long term (current) use of anticoagulants; Z79.02 Long term (current) use of antithrombotics/antiplatelets; Z79.4 Long term (current) use of insulin; Z79.82 Long term (current) use of aspirin; Z87.441 Personal history of nephrotic syndrome; Z87.442 Personal history of urinary calculi; Z98.891 History of uterine scar from previous surgery; Z99.2 Dependence on renal dialysis; Z68.39 Body mass index [BMI] 39.0-39.9, adult; Z79.899 Other long term (current) drug therapy; Z83.3 Family history of diabetes mellitus; Z82.49 Family history of ischemic heart disease and other diseases of the circulatory system
CPT/HCPCS: 31500; 36415; 36556; 36558; 36589; 36600; 71045; 71250; 71275; 76770; 76937; 77001; 80048; 80053; 80061; 80076; 80305; 80320; 81003; 82375; 82550; 82570; 82575; 82805; 82962; 83036; 83520; 83605; 83735; 83880; 84100; 84132; 84145; 84156; 84478; 84484; 84703; 85014; 85018; 85025; 85027; 85347; 85379; 86038; 86160; 86256; 86705; 86706; 86709; 86850; 86900; 86920; 87070; 87340; 87426; 87804; 90935; 92928; 93005; 93306; 93458; 93970; 94002; 94003; 94640; 97110; 97116; 97162; 99152; 99153; 99291; C1725; C1750; C1752; C1760; C1769; C1874; C1887; C1892; C1893; C9113; C9803; J0885; J1642; J1644; J1650; J1815; J1940; J1956; J2250; J2270; J2405; J2704; J3010; J3475; J3490; J7060; J7070; P9016; Q9967; G0480; G0500

== ENCOUNTER 2023-07-22 01:21 | Emergency (ER) | payer MEDICAID ==
[~2023-07-22] VITALS: Ht 170.2 cm; Wt 80.0 kg
[~2023-07-22 01:21] MED LIST changes: -ACYC200C31 MT; -BISA10SU62 RC; -CEPH500C2 MT; -IBUP-2028 MT; -IBUP-2029 MT; -LIP40 MT; +LORA10TA7 PO; -METO-293 MT; -METO5TAB86 MT; -P20 MT; -glipizide
[2023-07-22 01:29] VITALS: BP 0/0; PULSE 0
[2023-07-22 01:30] VITALS: RESP 14
[2023-07-22] MEDS ORDERED: VANCOMYCIN 1G PREMIX 200 ML IV ONE (02:00)
[2023-07-22] MEDS ORDERED: LEVOFLOXACIN 750MG PREMIX 150 ML IV ONE (02:00)
== END 2023-07-22 02:21 ==
LOC: ER 01:21
DX: I46.9 Cardiac arrest, cause unspecified (principal); I10 Essential (primary) hypertension; E11.9 Type 2 diabetes mellitus without complications; Z98.890 Other specified postprocedural states; Z88.1 Allergy status to other antibiotic agents; Z88.6 Allergy status to analgesic agent; Z88.0 Allergy status to penicillin; Z88.5 Allergy status to narcotic agent
CPT/HCPCS: 82962; 31500 ×2; 93005; 92950; 99291; Z7610 ×4; 94002